=== PATIENT | male | born 1960 | race African-American/Black ===

== ENCOUNTER 2023-05-18 13:37 | Inpatient (IN) | payer OTHER ==
[2023-05-18] MEDS ORDERED: ACETAMINOPHEN 1000 MG/100 ML BAG IVPB ONE (14:29)
[2023-05-18] MEDS ORDERED: ACETAMINOPHEN INJECTION 100 ML IVPB ONE (14:32)
[2023-05-18 15:02] LABS: VENOUS BASE EXCESS -1.6 mmol/L (-2-2); VENOUS PCO2 42.4 mmHg (38-52); VENOUS PH 7.367 (7.310-7.410)
[2023-05-18 15:12] LABS: BASO % 1.3 % (0-2.0); EOS % 2.1 % (0-4.5); HEMATOCRIT 39.7 % (35.4-49); HEMOGLOBIN 13.3 GM/dL (11.7-16.9); MCH 32.4 pg (25.7-33.7); MCHC 33.4 g/dl (32.0-35.9); MEAN CELL VOLUME 96.9 fl (80-96); MONO % 8.1 % (3.8-10.2); NEUT % 63.5 % (42.8-82.8); PLATELET COUNT 222 10^3/uL (134-434); RBC 4.09 M/mm3 (4.00-5.60); RDW 14.9 % (11.9-15.9); WHITE BLOOD COUNT 10.3 K/mm3 (4.0-10.0)
[2023-05-18 15:21] LABS: POTASSIUM 3.3 mmol/L (3.5-5.1)
[2023-05-18 15:24] LABS: CALCIUM 8.6 mg/dL (8.5-10.1)
[2023-05-18 15:25] LABS: ALBUMIN 3.8 g/dl (3.4-5.0); BLOOD UREA NITROGEN 12.6 mg/dL (7-18); MAGNESIUM 1.7 mg/dL (1.8-2.4)
[2023-05-18 15:28] LABS: BILIRUBIN,TOTAL 1.5 mg/dL (0.2-1); CREATININE 1.2 mg/dL (0.55-1.3)
[2023-05-18 15:29] LABS: TOT PROT 7.4 g/dl (6.4-8.2)
[2023-05-18 15:32] LABS: N-TERMINAL BNP 4140.6 pg/ml (5-125)
[2023-05-18] MEDS ORDERED: POTASSIUM CHLORIDE TABS 20 MEQ TABLET.ER (FP) PO ONE ×2 (15:36→15:51)
[2023-05-18] MEDS ORDERED: MAGNESIUM SULF 50% (8.12 MEQ/2 ML-1 GM VIAL) IVPB ONE (15:36)
[2023-05-18] MEDS ORDERED: FUROSEMIDE 40 MG/4 ML INJECTABLE VIAL IVPUSH ONE (15:36)
[2023-05-18] MEDS ORDERED: MAGNESIUM SULFATE IN WATER 2 GM/50 ML IVPB IVPB ONE (15:51)
[2023-05-18] MEDS ORDERED: FUROSEMIDE 40 MG/4 ML INJECTABLE VIAL ONE (15:51)
[2023-05-18] MEDS ORDERED: CEFTRIAXONE 1,000 MG in DEXTROSE 5%-WATER - 50 ML IVPB ONE (16:54)
[2023-05-18] MEDS ORDERED: CEFTRIAXONE 1 GM/50 ML BAG ONE (17:11)
[2023-05-18 21:13] LABS: URINE APPEARANCE CLEAR; URINE BILIRUBIN NEGATIVE (NEGATIVE); URINE COLOR YELLOW; URINE GLUCOSE (UA) 2+ (NEGATIVE); URINE KETONE NEGATIVE (NEGATIVE); URINE LEUK ESTERASE NEGATIVE (NEGATIVE); URINE NITRITE NEGATIVE (NEGATIVE); URINE PROTEIN NEGATIVE (NEGATIVE); URINE UROBILINOGEN 0.2 mg/dL (0.2-1.0)
[2023-05-19] MEDS ORDERED: ALBUTEROL SO4 0.083% IH SOL 2.5 MG/3 ML VIAL.NEB. NEB ONE (03:10)
[2023-05-19] MEDS ORDERED: ACETAMINOPHEN 325 MG TABLET (FP) PO ONE ×2 (04:22→22:20)
[2023-05-19 06:00] LABS: BASO % 1.4 % (0-2.0); EOS % 2.9 % (0-4.5); HEMATOCRIT 39.4 % (35.4-49); HEMOGLOBIN 13.5 GM/dL (11.7-16.9); LYMPH % 20.9 % (8-40); MCH 32.8 pg (25.7-33.7); MCHC 34.2 g/dl (32.0-35.9); MEAN CELL VOLUME 96.1 fl (80-96); MEAN PLT VOLUME 8.5 fl (7.5-11.1); MONO % 9.1 % (3.8-10.2); NEUT % 65.7 % (42.8-82.8); PLATELET COUNT 202 10^3/uL (134-434); RDW 15.3 % (11.9-15.9); WHITE BLOOD COUNT 10.2 K/mm3 (4.0-10.0)
[2023-05-19 06:13] LABS: POTASSIUM 3.5 mmol/L (3.5-5.1)
[2023-05-19 06:15] LABS: CALCIUM 8.3 mg/dL (8.5-10.1)
[2023-05-19 06:16] LABS: ALBUMIN 3.5 g/dl (3.4-5.0); BLOOD UREA NITROGEN 14.6 mg/dL (7-18); MAGNESIUM 1.8 mg/dL (1.8-2.4)
[2023-05-19 06:19] LABS: CREATININE 1.2 mg/dL (0.55-1.3)
[2023-05-19 06:21] LABS: BILIRUBIN,TOTAL 1.1 mg/dL (0.2-1); TOT PROT 6.9 g/dl (6.4-8.2)
[2023-05-19] MEDS ORDERED: LIDOCAINE 5% TOPICAL PATCH TP ONE (06:29)
[2023-05-19] MEDS ORDERED: LIDOCAINE 5% TOPICAL PATCH ONE (06:41)
[2023-05-19] MEDS ORDERED: POTASSIUM CHLORIDE ORAL LIQUID 20 MEQ/15 ML PO ONE (09:30)
[2023-05-19] MEDS ORDERED: CEFTRIAXONE 1 GM/50 ML BAG ONE (09:32)
[2023-05-19] MEDS ORDERED: POTASSIUM CHLORIDE ORAL LIQUID 20 MEQ/15 ML ONE (09:32)
[2023-05-19] MEDS ORDERED: FUROSEMIDE 40 MG/4 ML INJECTABLE VIAL ONE (09:33)
[2023-05-19] MEDS: FUROSEMIDE 40 MG/4 ML INJECTABLE VIAL IVPUSH SCH (10:33)
[2023-05-19] MEDS: CEFTRIAXONE 1 GM in DEXTROSE 5%-WATER - 50 ML IVPB SCH (10:33)
[2023-05-19] MEDS ORDERED: ALBUTEROL SO4 2.5/IPRATROPIUM 0.5 INH SOL 3 ML VIAL.NEB. NEB ONE ×2 (12:15→16:17)
[2023-05-19] MEDS: ALBUTEROL SO4 2.5/IPRATROPIUM 0.5 INH SOL 3 ML VIAL.NEB. NEB SCH ×3 (12:17→20:00)
[2023-05-19 20:11] VITALS: BMI 26.8
[2023-05-19] MEDS: SACUBITRIL/VALSARTAN 24 MG-26 MG TABLET PO SCH (22:27)
[2023-05-19] MEDS: CARVEDILOL 3.125 MG TABLET (FP) PO SCH (22:27)
[2023-05-19] MEDS: LIDOCAINE PATCH REMOVAL MC SCH (22:27)
[2023-05-20] MEDS ORDERED: INSULIN (NOVOLOG) ASPART 100 UNITS/ML 10ML VIAL ONE ×3 (05:39→21:34)
[2023-05-20] MEDS: INSULIN SLIDING SCALE (NOVOLOG) 1 VIAL SQ SCH ×4 (06:02→21:27)
[2023-05-20] MEDS: ALBUTEROL SO4 2.5/IPRATROPIUM 0.5 INH SOL 3 ML VIAL.NEB. NEB SCH ×4 (07:15→20:40)
[2023-05-20 08:00] LABS: POTASSIUM 3.5 mmol/L (3.5-5.1)
[2023-05-20 08:17] LABS: EOS % 5.6 % (0-4.5); HEMATOCRIT 40.2 % (35.4-49); HEMOGLOBIN 13.9 GM/dL (11.7-16.9); LYMPH % 26.4 % (8-40); MCH 32.6 pg (25.7-33.7); MCHC 34.5 g/dl (32.0-35.9); MEAN CELL VOLUME 94.5 fl (80-96); MEAN PLT VOLUME 9.1 fl (7.5-11.1); MONO % 8.9 % (3.8-10.2); NEUT % 58.1 % (42.8-82.8); PLATELET COUNT 209 10^3/uL (134-434); RBC 4.25 M/mm3 (4.00-5.60); RDW 15.2 % (11.9-15.9); WHITE BLOOD COUNT 9.1 K/mm3 (4.0-10.0)
[2023-05-20 08:30] LABS: ALBUMIN 3.6 g/dl (3.4-5.0); CALCIUM 8.8 mg/dL (8.5-10.1)
[2023-05-20 08:31] LABS: BLOOD UREA NITROGEN 17.3 mg/dL (7-18); MAGNESIUM 1.8 mg/dL (1.8-2.4)
[2023-05-20 08:33] LABS: BILIRUBIN,TOTAL 1.2 mg/dL (0.2-1); CREATININE 1.1 mg/dL (0.55-1.3)
[2023-05-20 08:34] LABS: TOT PROT 7.1 g/dl (6.4-8.2)
[2023-05-20] MEDS: POTASSIUM CHLORIDE TABS 20 MEQ TABLET.ER (FP) PO SCH (10:10)
[2023-05-20] MEDS: SACUBITRIL/VALSARTAN 24 MG-26 MG TABLET PO SCH ×2 (10:10→21:27)
[2023-05-20] MEDS: FUROSEMIDE 40 MG/4 ML INJECTABLE VIAL IVPUSH SCH (10:10)
[2023-05-20] MEDS: CARVEDILOL 3.125 MG TABLET (FP) PO SCH ×2 (10:10→21:27)
[2023-05-20] MEDS: CEFTRIAXONE 1 GM in DEXTROSE 5%-WATER - 50 ML IVPB SCH (10:11)
[2023-05-20] MEDS: LIDOCAINE PATCH REMOVAL MC SCH (21:27)
[2023-05-20] MEDS ORDERED: ACETAMINOPHEN 325 MG TABLET (FP) PO ONE (21:59)
[2023-05-21] MEDS: INSULIN SLIDING SCALE (NOVOLOG) 1 VIAL SQ SCH ×2 (06:41→11:53)
[2023-05-21] MEDS: ALBUTEROL SO4 2.5/IPRATROPIUM 0.5 INH SOL 3 ML VIAL.NEB. NEB SCH ×2 (07:15→11:15)
[2023-05-21] MEDS: CARVEDILOL 3.125 MG TABLET (FP) PO SCH (09:30)
[2023-05-21] MEDS: POTASSIUM CHLORIDE TABS 20 MEQ TABLET.ER (FP) PO SCH (09:30)
[2023-05-21] MEDS: SACUBITRIL/VALSARTAN 24 MG-26 MG TABLET PO SCH (09:30)
[2023-05-21] MEDS: FUROSEMIDE 40 MG/4 ML INJECTABLE VIAL IVPUSH SCH (09:30)
[2023-05-21] MEDS: CEFTRIAXONE 1 GM in DEXTROSE 5%-WATER - 50 ML IVPB SCH (09:31)
[2023-05-21] MEDS ORDERED: INSULIN (NOVOLOG) ASPART 100 UNITS/ML 10ML VIAL ONE (11:51)
[2023-05-21 14:48] VITALS: BP 131/77; PULSE 99; RESP 20; TEMP 98
== END 2023-05-21 13:45 | disposition home or self-care (01) | DRG 194 ==
LOC: JER 13:37 → JERBED 15:18 → J4W 05-19 18:11
PROVIDERS: ADMIT Internal Medicine; ATTEND Internal Medicine
DX: I11.0 Hypertensive heart disease with heart failure (principal); J18.9 Pneumonia, unspecified organism; E83.42 Hypomagnesemia; E11.9 Type 2 diabetes mellitus without complications; E78.5 Hyperlipidemia, unspecified; E87.6 Hypokalemia; I10 Essential (primary) hypertension; R09.02 Hypoxemia; I50.23 Acute on chronic systolic (congestive) heart failure
CPT/HCPCS: 0241U-QW; 36415; 71046-TC-FY; 71250-TC; 80053; 81003; 82803; 82962; 83036; 83735; 83880; 84443; 84484; 85025; 87040; 87086; 87899; 93005; 93010; 93306-TC; 94640; 94761; 99291

== ENCOUNTER 2023-05-31 06:46 | Inpatient (IN) | payer OTHER ==
[2023-05-31 09:33] LABS: BASO % 0.9 % (0-2.0); EOS % 2.5 % (0-4.5); HEMATOCRIT 44.4 % (35.4-49); HEMOGLOBIN 14.9 GM/dL (11.7-16.9); LYMPH % 18.8 % (8-40); MCHC 33.5 g/dl (32.0-35.9); MEAN CELL VOLUME 95.2 fl (80-96); MEAN PLT VOLUME 8.2 fl (7.5-11.1); MONO % 5.6 % (3.8-10.2); NEUT % 72.2 % (42.8-82.8); PLATELET COUNT 212 10^3/uL (134-434); RBC 4.66 M/mm3 (4.00-5.60); RDW 14.7 % (11.9-15.9); WHITE BLOOD COUNT 12.5 K/mm3 (4.0-10.0)
[2023-05-31 09:59] LABS: CHLORIDE 101 mmol/L (98-107); SODIUM 139 mmol/L (136-145)
[2023-05-31 10:02] LABS: ANION GAP 10 MMOL/L (8-16); BLOOD UREA NITROGEN 23.7 mg/dL (7-18); CO2 28 mmol/L (21-32); GLUCOSE,RANDOM 186 mg/dL (74-106)
[2023-05-31 10:05] LABS: CREATININE 1.3 mg/dL (0.55-1.3); SGOT/AST 30 U/L (15-37)
[2023-05-31 10:06] LABS: BILIRUBIN,TOTAL 1.7 mg/dL (0.2-1); TOT PROT 8.2 g/dl (6.4-8.2)
[2023-05-31 10:08] LABS: ALK PHOS 43 U/L (45-117)
[2023-05-31] MEDS ORDERED: FAMOTIDINE 20 MG/50 ML IVPB 20 MG/50 ML MG IVPB ONE ×2 (10:09→11:19)
[2023-05-31] MEDS ORDERED: ACETAMINOPHEN 1000 MG/100 ML BAG IVPB ONE ×2 (10:09→22:25)
[2023-05-31] MEDS ORDERED: TRIMETHOBENZAMIDE HCL 200MG/2ML INJ IM ONE ×2 (10:09→11:18)
[2023-05-31 10:10] LABS: N-TERMINAL BNP 864.7 pg/ml (5-125)
[2023-05-31 10:16] LABS: ALBUMIN 4.4 g/dl (3.4-5.0); LIPASE 2434 U/L (73-393); SGPT/ALT 49 U/L (13-61)
[2023-05-31 10:22] LABS: PH,URINE 5.5 (5.0-8.0); URINE APPEARANCE CLEAR; URINE BILIRUBIN NEGATIVE (NEGATIVE); URINE COLOR YELLOW; URINE GLUCOSE (UA) 3+ (NEGATIVE); URINE KETONE TRACE (NEGATIVE); URINE LEUK ESTERASE NEGATIVE (NEGATIVE); URINE NITRITE NEGATIVE (NEGATIVE); URINE PROTEIN TRACE (NEGATIVE); URINE UROBILINOGEN 0.2 mg/dL (0.2-1.0)
[2023-05-31] MEDS ORDERED: ACETAMINOPHEN INJECTION 100 ML IVPB ONE (11:18)
[2023-05-31] MEDS ORDERED: SODIUM CHLORIDE 0.9% 500 ML INFUS.BAG IV ONE (11:19)
[2023-05-31 12:15] LABS: LACTIC ACID 2.3 mmol/L (0.4-2.0)
[2023-05-31 12:54] LABS: MAGNESIUM 2.1 mg/dL (1.8-2.4)
[2023-05-31 15:08] LABS: AMYLASE 509 U/L (25-115)
[2023-05-31 15:09] LABS: CHOLESTEROL 202 mg/dL (50-200)
[2023-05-31 15:10] LABS: BILIRUBIN,DIRECT 0.4 mg/dL (0.0-0.2)
[2023-05-31 15:12] LABS: HDL CHOLESTEROL 63 mg/dL (40-60); LDL CHOLESTEROL (ONLY SJRH) 95 mg/dL (5-100)
[2023-05-31] MEDS ORDERED: ALBUTEROL SO4 2.5/IPRATROPIUM 0.5 INH SOL 3 ML VIAL.NEB. NEB ONE (16:08)
[2023-05-31] MEDS: ALBUTEROL SO4 2.5/IPRATROPIUM 0.5 INH SOL 3 ML VIAL.NEB. NEB SCH ×2 (16:14→23:26)
[2023-05-31] MEDS ORDERED: LACTATED RINGERS SOLUTION 1,000 ML/1,000 ML INFUS.BAG IV SCH ×2 (16:30)
[2023-05-31 17:57] LABS: LACTIC ACID 2.1 mmol/L (0.4-2.0)
[2023-05-31] MEDS: HEPARIN NA (PORCINE) 5,000 UNITS/ML 1ML VIAL SQ SCH (22:49)
[2023-05-31] MEDS: CARVEDILOL 3.125 MG TABLET (FP) PO SCH (22:49)
[2023-06-01] MEDS ORDERED: LACTATED RINGERS SOLUTION 1,000 ML/1,000 ML INFUS.BAG IV SCH (01:46)
[2023-06-01] MEDS: HEPARIN NA (PORCINE) 5,000 UNITS/ML 1ML VIAL SQ SCH ×3 (06:26→21:53)
[2023-06-01] MEDS: morphine SULFATE 4 MG/ML VIAL IVPUSH PRN ×4 (06:42→21:53)
[2023-06-01 07:41] LABS: BASO % 0.5 % (0-2.0); EOS % 0.7 % (0-4.5); HEMOGLOBIN 14.9 GM/dL (11.7-16.9); LYMPH % 9.8 % (8-40); MCH 32.2 pg (25.7-33.7); MCHC 33.8 g/dl (32.0-35.9); MEAN CELL VOLUME 95.1 fl (80-96); MONO % 5.3 % (3.8-10.2); NEUT % 83.7 % (42.8-82.8); PLATELET COUNT 183 10^3/uL (134-434); RBC 4.62 M/mm3 (4.00-5.60); RDW 14.6 % (11.9-15.9)
[2023-06-01 08:00] LABS: POTASSIUM 3.8 mmol/L (3.5-5.1)
[2023-06-01 08:04] LABS: CALCIUM 8.5 mg/dL (8.5-10.1)
[2023-06-01 08:05] LABS: ALBUMIN 4.3 g/dl (3.4-5.0); BLOOD UREA NITROGEN 18.7 mg/dL (7-18); MAGNESIUM 1.8 mg/dL (1.8-2.4)
[2023-06-01 08:08] LABS: CREATININE 0.9 mg/dL (0.55-1.3)
[2023-06-01 08:09] LABS: BILIRUBIN,TOTAL 2.6 mg/dL (0.2-1)
[2023-06-01 08:10] LABS: TOT PROT 7.9 g/dl (6.4-8.2)
[2023-06-01] MEDS ORDERED: FUROSEMIDE 40 MG/4 ML INJECTABLE VIAL IVPUSH ONE (08:30)
[2023-06-01] MEDS: ALBUTEROL SO4 2.5/IPRATROPIUM 0.5 INH SOL 3 ML VIAL.NEB. NEB SCH ×4 (08:50→20:45)
[2023-06-01] MEDS: CARVEDILOL 3.125 MG TABLET (FP) PO SCH ×2 (09:32→21:53)
[2023-06-01] MEDS ORDERED: ACETAMINOPHEN 500 MG TABLET (FP) PO PRN (09:45)
[2023-06-01] MEDS ORDERED: hydrALAZINE HCL 20 MG/ML VIAL IVPUSH PRN (10:43)
[2023-06-01] MEDS ORDERED: METOPROLOL TARTRATE 5 MG/5 ML VIAL IVPUSH PRN (10:43)
[2023-06-01] MEDS: amLODIPine BESYLATE 5 MG TABLET (FP) PO SCH (12:08)
[2023-06-01] MEDS: SACUBITRIL/VALSARTAN 24 MG-26 MG TABLET PO SCH ×2 (12:09→21:53)
[2023-06-02] MEDS: HEPARIN NA (PORCINE) 5,000 UNITS/ML 1ML VIAL SQ SCH ×3 (06:02→21:51)
[2023-06-02] MEDS: morphine SULFATE 4 MG/ML VIAL IVPUSH PRN ×2 (06:02→10:14)
[2023-06-02 08:21] LABS: BASO % 0.1 % (0-2.0); EOS % 0.2 % (0-4.5); HEMATOCRIT 43.2 % (35.4-49); LYMPH % 7.4 % (8-40); MCH 32.4 pg (25.7-33.7); MCHC 34.7 g/dl (32.0-35.9); MEAN CELL VOLUME 93.4 fl (80-96); MEAN PLT VOLUME 9.1 fl (7.5-11.1); MONO % 7.1 % (3.8-10.2); NEUT % 85.2 % (42.8-82.8); PLATELET COUNT 168 10^3/uL (134-434); RBC 4.63 M/mm3 (4.00-5.60); RDW 14.7 % (11.9-15.9)
[2023-06-02 08:28] LABS: POTASSIUM 3.8 mmol/L (3.5-5.1)
[2023-06-02 08:30] LABS: ALBUMIN 3.8 g/dl (3.4-5.0); BLOOD UREA NITROGEN 15.6 mg/dL (7-18); CALCIUM 8.2 mg/dL (8.5-10.1)
[2023-06-02] MEDS: ALBUTEROL SO4 2.5/IPRATROPIUM 0.5 INH SOL 3 ML VIAL.NEB. NEB SCH ×4 (08:34→23:04)
[2023-06-02 08:36] LABS: BILIRUBIN,TOTAL 1.9 mg/dL (0.2-1); TOT PROT 7.3 g/dl (6.4-8.2)
[2023-06-02] MEDS: CARVEDILOL 3.125 MG TABLET (FP) PO SCH (09:31)
[2023-06-02] MEDS: amLODIPine BESYLATE 5 MG TABLET (FP) PO SCH (09:31)
[2023-06-02] MEDS: SACUBITRIL/VALSARTAN 24 MG-26 MG TABLET PO SCH ×2 (09:31→21:51)
[2023-06-02] MEDS: SODIUM CHLORIDE 0.45%/POT 20 MEQ/1,000 ML INFUS.BAG IV SCH (10:13)
[2023-06-02] MEDS: ACETAMINOPHEN 500 MG TABLET (FP) PO PRN (16:03)
[2023-06-02] MEDS ORDERED: INSULIN (NOVOLOG) ASPART 100 UNITS/ML 10ML VIAL ONE (17:28)
[2023-06-02] MEDS: INSULIN SLIDING SCALE (NOVOLOG) 1 VIAL SQ SCH ×2 (17:42→21:58)
[2023-06-02] MEDS: CARVEDILOL 6.25 MG TABLET (FP) PO SCH (21:51)
[2023-06-03] MEDS: HEPARIN NA (PORCINE) 5,000 UNITS/ML 1ML VIAL SQ SCH ×3 (05:56→21:47)
[2023-06-03] MEDS ORDERED: INSULIN (NOVOLOG) ASPART 100 UNITS/ML 10ML VIAL ONE ×2 (06:06→16:38)
[2023-06-03] MEDS: INSULIN SLIDING SCALE (NOVOLOG) 1 VIAL SQ SCH ×4 (06:08→21:48)
[2023-06-03 07:42] LABS: BASO % 0.5 % (0-2.0); EOS % 1.7 % (0-4.5); HEMATOCRIT 38.3 % (35.4-49); HEMOGLOBIN 13.1 GM/dL (11.7-16.9); LYMPH % 12.7 % (8-40); MCH 32.6 pg (25.7-33.7); MCHC 34.1 g/dl (32.0-35.9); MEAN CELL VOLUME 95.4 fl (80-96); MEAN PLT VOLUME 9.2 fl (7.5-11.1); MONO % 6.1 % (3.8-10.2); PLATELET COUNT 135 10^3/uL (134-434); RBC 4.02 M/mm3 (4.00-5.60); RDW 14.6 % (11.9-15.9); WHITE BLOOD COUNT 15.1 K/mm3 (4.0-10.0)
[2023-06-03 07:59] LABS: POTASSIUM 3.5 mmol/L (3.5-5.1)
[2023-06-03 08:03] LABS: ALBUMIN 3.2 g/dl (3.4-5.0); BLOOD UREA NITROGEN 24.5 mg/dL (7-18); CALCIUM 7.2 mg/dL (8.5-10.1)
[2023-06-03 08:06] LABS: CREATININE 1.7 mg/dL (0.55-1.3)
[2023-06-03 08:08] LABS: BILIRUBIN,TOTAL 1.4 mg/dL (0.2-1); TOT PROT 6.6 g/dl (6.4-8.2)
[2023-06-03] MEDS: ALBUTEROL SO4 2.5/IPRATROPIUM 0.5 INH SOL 3 ML VIAL.NEB. NEB SCH ×4 (08:10→19:42)
[2023-06-03] MEDS: SODIUM CHLORIDE 0.45%/POT 20 MEQ/1,000 ML INFUS.BAG IV SCH (09:14)
[2023-06-03] MEDS: ACETAMINOPHEN 500 MG TABLET (FP) PO PRN ×3 (09:16→19:54)
[2023-06-03] MEDS: SACUBITRIL/VALSARTAN 24 MG-26 MG TABLET PO SCH ×2 (09:16→21:47)
[2023-06-03] MEDS: CARVEDILOL 6.25 MG TABLET (FP) PO SCH ×2 (09:16→21:48)
[2023-06-03 16:22] VITALS: BMI 28.6
[2023-06-03 23:47] LABS: PH,URINE 5.5 (5.0-8.0); URINE APPEARANCE CLEAR; URINE BILIRUBIN NEGATIVE (NEGATIVE); URINE COLOR YELLOW; URINE GLUCOSE (UA) 3+ (NEGATIVE); URINE KETONE NEGATIVE (NEGATIVE); URINE LEUK ESTERASE NEGATIVE (NEGATIVE); URINE NITRITE NEGATIVE (NEGATIVE); URINE PROTEIN NEGATIVE (NEGATIVE)
[2023-06-04] MEDS: ACETAMINOPHEN 500 MG TABLET (FP) PO PRN ×2 (01:37→06:51)
[2023-06-04] MEDS: HEPARIN NA (PORCINE) 5,000 UNITS/ML 1ML VIAL SQ SCH (05:59)
[2023-06-04] MEDS: INSULIN SLIDING SCALE (NOVOLOG) 1 VIAL SQ SCH (06:12)
[2023-06-04] MEDS: ALBUTEROL SO4 2.5/IPRATROPIUM 0.5 INH SOL 3 ML VIAL.NEB. NEB SCH (07:30)
[2023-06-04 08:23] LABS: POTASSIUM 3.5 mmol/L (3.5-5.1)
[2023-06-04 08:27] LABS: BASO % 0.5 % (0-2.0); CALCIUM 7.5 mg/dL (8.5-10.1); EOS % 2.5 % (0-4.5); HEMATOCRIT 37.5 % (35.4-49); HEMOGLOBIN 12.8 GM/dL (11.7-16.9); LYMPH % 19.1 % (8-40); MCH 32.4 pg (25.7-33.7); MCHC 34.2 g/dl (32.0-35.9); MEAN CELL VOLUME 94.8 fl (80-96); MEAN PLT VOLUME 8.9 fl (7.5-11.1); MONO % 8.7 % (3.8-10.2); NEUT % 69.2 % (42.8-82.8); PLATELET COUNT 127 10^3/uL (134-434); RBC 3.95 M/mm3 (4.00-5.60); RDW 14.5 % (11.9-15.9); WHITE BLOOD COUNT 9.8 K/mm3 (4.0-10.0)
[2023-06-04 08:30] LABS: CREATININE 1.3 mg/dL (0.55-1.3)
[2023-06-04 08:32] LABS: BILIRUBIN,TOTAL 0.9 mg/dL (0.2-1); TOT PROT 6.3 g/dl (6.4-8.2)
[2023-06-04] MEDS: SODIUM CHLORIDE 0.45%/POT 20 MEQ/1,000 ML INFUS.BAG IV SCH (09:17)
[2023-06-04] MEDS: CARVEDILOL 6.25 MG TABLET (FP) PO SCH (09:18)
[2023-06-04] MEDS: SACUBITRIL/VALSARTAN 24 MG-26 MG TABLET PO SCH (09:18)
[2023-06-04 09:23] VITALS: BP 115/73; PULSE 92; RESP 16; TEMP 98.3
== END 2023-06-04 10:30 | disposition left against medical advice (07) | DRG 282 ==
LOC: JER 06:46 → JERBED 13:42 → J4W 22:17
PROVIDERS: ADMIT Internal Medicine; ATTEND Internal Medicine
DX: K85.20 Alcohol induced acute pancreatitis without necrosis or infection (principal); J44.9 Chronic obstructive pulmonary disease, unspecified; D72.829 Elevated white blood cell count, unspecified; N17.9 Acute kidney failure, unspecified; I11.0 Hypertensive heart disease with heart failure; I50.22 Chronic systolic (congestive) heart failure
CPT/HCPCS: 0241U-QW; 36415; 71045-TC-FY; 74177-TC; 74183-TC; 76705-TC; 76775-TC; 80053; 80061; 81003; 82150; 82248; 82787; 82962; 83036; 83605; 83690; 83735; 83880; 84443; 84484; 85025; 86140; 87040; 93005; 93010; 94010; 94640; 99285-25; J1644; J3480; Q9967

== ENCOUNTER 2023-06-26 21:29 | Inpatient (IN) | payer OTHER ==
[2023-06-26] MEDS ORDERED: VALSARTAN 40 MG TABLET PO ONE (22:29)
[2023-06-26] MEDS ORDERED: ASPIRIN 81 MG CHEWABLE TABLETS PO ONE (22:30)
[2023-06-26] MEDS ORDERED: VALSARTAN 80 MG TABLET ONE (22:41)
[2023-06-26] MEDS ORDERED: ASPIRIN 81 MG CHEWABLE TABLETS ONE (22:41)
[2023-06-26 23:42] LABS: BASO % 0.8 % (0-2.0); EOS % 4.1 % (0-4.5); HEMATOCRIT 33.3 % (35.4-49); HEMOGLOBIN 11.8 GM/dL (11.7-16.9); MCH 32.9 pg (25.7-33.7); MCHC 35.5 g/dl (32.0-35.9); MEAN CELL VOLUME 92.7 fl (80-96); MEAN PLT VOLUME 8.5 fl (7.5-11.1); MONO % 7.1 % (3.8-10.2); PLATELET COUNT 147 10^3/uL (134-434); RBC 3.59 M/mm3 (4.00-5.60); RDW 14.2 % (11.9-15.9); WHITE BLOOD COUNT 8.1 K/mm3 (4.0-10.0)
[2023-06-26 23:50] LABS: INR 1.06 (0.83-1.09); PROTHROMBIN TIME (PATIENT) 12.3 SEC (9.7-13.0)
[2023-06-26 23:53] LABS: ACTIVATED PTT 32.5 SECONDS (25.2-36.5)
[2023-06-27 00:06] LABS: POTASSIUM 3.5 mmol/L (3.5-5.1)
[2023-06-27 00:09] LABS: ALBUMIN 3.9 g/dl (3.4-5.0); BLOOD UREA NITROGEN 17.6 mg/dL (7-18); CALCIUM 8.9 mg/dL (8.5-10.1)
[2023-06-27 00:10] LABS: MAGNESIUM 1.6 mg/dL (1.8-2.4)
[2023-06-27 00:13] LABS: CREATININE 1.1 mg/dL (0.55-1.3)
[2023-06-27 00:14] LABS: BILIRUBIN,TOTAL 0.8 mg/dL (0.2-1); TOT PROT 7.4 g/dl (6.4-8.2)
[2023-06-27] MEDS ORDERED: ACETAMINOPHEN 325 MG TABLET (FP) PO ONE (01:49)
[2023-06-27] MEDS ORDERED: ACETAMINOPHEN 325 MG TABLET (FP) ONE (01:52)
[2023-06-27] MEDS ORDERED: MAGNESIUM SULF 50% (8.12 MEQ/2 ML-1 GM VIAL) IVPB ONE (02:38)
[2023-06-27] MEDS ORDERED: MAGNESIUM SULFATE IN WATER 2 GM/50 ML IVPB IVPB ONE (02:45)
[2023-06-27] MEDS: traMADol HCL 50 MG TABLET PO PRN ×3 (04:32→17:39)
[2023-06-27 06:44] LABS: BASO % 0.7 % (0-2.0); EOS % 3.4 % (0-4.5); HEMATOCRIT 34.8 % (35.4-49); HEMOGLOBIN 11.8 GM/dL (11.7-16.9); LYMPH % 28.3 % (8-40); MEAN CELL VOLUME 94.1 fl (80-96); MEAN PLT VOLUME 8.3 fl (7.5-11.1); MONO % 7.4 % (3.8-10.2); NEUT % 60.2 % (42.8-82.8); PLATELET COUNT 155 10^3/uL (134-434); RBC 3.69 M/mm3 (4.00-5.60); RDW 14.2 % (11.9-15.9); WHITE BLOOD COUNT 8.4 K/mm3 (4.0-10.0)
[2023-06-27 07:05] LABS: CALCIUM 8.7 mg/dL (8.5-10.1)
[2023-06-27 07:06] LABS: ALBUMIN 3.7 g/dl (3.4-5.0); BLOOD UREA NITROGEN 17.4 mg/dL (7-18)
[2023-06-27 07:09] LABS: CREATININE 1.2 mg/dL (0.55-1.3)
[2023-06-27 07:10] LABS: TOT PROT 7.1 g/dl (6.4-8.2)
[2023-06-27] MEDS ORDERED: TAMSULOSIN HCL 0.4 MG CAP ONE (07:55)
[2023-06-27] MEDS: TAMSULOSIN HCL 0.4 MG CAP PO SCH (07:55)
[2023-06-27] MEDS ORDERED: CARVEDILOL 3.125 MG TABLET (FP) ONE (08:29)
[2023-06-27] MEDS ORDERED: SACUBITRIL/VALSARTAN 24 MG-26 MG TABLET ONE (08:29)
[2023-06-27] MEDS ORDERED: FUROSEMIDE 20 MG TABLET (FP) ONE (08:30)
[2023-06-27] MEDS: SACUBITRIL/VALSARTAN 24 MG-26 MG TABLET PO SCH ×2 (09:18→22:22)
[2023-06-27] MEDS ORDERED: FUROSEMIDE 20 MG TABLET (FP) PO SCH ×2 (10:00→12:27)
[2023-06-27] MEDS ORDERED: CARVEDILOL 3.125 MG TABLET (FP) PO SCH (10:00)
[2023-06-27] MEDS ORDERED: traMADol HCL 50 MG TABLET ONE (10:51)
[2023-06-27] MEDS ORDERED: LIDOCAINE 5% TOPICAL PATCH TP ONE (21:35)
[2023-06-27] MEDS ORDERED: ACETAMINOPHEN 1000 MG/100 ML BAG IVPB ONE (21:35)
[2023-06-27] MEDS ORDERED: LIDOCAINE 4% PATCH TP ONE (22:00)
[2023-06-27] MEDS ORDERED: ATORVASTATIN CA 80 MG TABLET (FP) PO SCH (22:00)
[2023-06-27] MEDS: CARVEDILOL 3.125 MG TABLET (FP) PO SCH (22:22)
[2023-06-27] MEDS: INSULIN SLIDING SCALE (NOVOLOG) 1 VIAL SQ SCH (23:29)
[2023-06-28 00:53] VITALS: RESP 18; BMI 30.4
[2023-06-28 02:11] VITALS: PULSE 86
[2023-06-28] MEDS: INSULIN SLIDING SCALE (NOVOLOG) 1 VIAL SQ SCH ×2 (06:15→11:15)
[2023-06-28 07:47] LABS: POTASSIUM 3.9 mmol/L (3.5-5.1)
[2023-06-28 07:53] LABS: CALCIUM 8.4 mg/dL (8.5-10.1); MAGNESIUM 1.8 mg/dL (1.8-2.4)
[2023-06-28 07:54] LABS: BLOOD UREA NITROGEN 17.1 mg/dL (7-18)
[2023-06-28] MEDS: traMADol HCL 50 MG TABLET PO PRN (09:21)
[2023-06-28] MEDS: CARVEDILOL 3.125 MG TABLET (FP) PO SCH (09:21)
[2023-06-28] MEDS: SACUBITRIL/VALSARTAN 24 MG-26 MG TABLET PO SCH (09:21)
[2023-06-28] MEDS: TAMSULOSIN HCL 0.4 MG CAP PO SCH (09:22)
[2023-06-28] MEDS ORDERED: FLU VACCINE (FLULAVAL) PF 60 MCG/0.5 ML SYRINGE 2023-2024 IM ONE (10:00)
[2023-06-28] MEDS ORDERED: PNEUMOC 20-VAL CONJ-DIP CRM/PF 0.5 ML SYRINGE IM ONE (10:00)
[2023-06-28] MEDS ORDERED: LIDOCAINE PATCH REMOVAL MC SCH (10:00)
[2023-06-28 13:02] VITALS: BP 125/79; TEMP 98.6
== END 2023-06-28 13:02 | disposition home or self-care (01) | DRG 194 ==
LOC: JER 21:29 → JERBED 06-27 00:59 → J4W 06-27 13:26
PROVIDERS: ADMIT Internal Medicine; ATTEND Family Medicine
DX: I11.0 Hypertensive heart disease with heart failure (principal); I50.23 Acute on chronic systolic (congestive) heart failure; R07.89 Other chest pain; E11.9 Type 2 diabetes mellitus without complications; E78.5 Hyperlipidemia, unspecified; M25.552 Pain in left hip; J44.9 Chronic obstructive pulmonary disease, unspecified; M54.17 Radiculopathy, lumbosacral region; Z86.73 Personal history of transient ischemic attack (TIA), and cerebral infarction without residual deficits
CPT/HCPCS: 36415; 71045-TC-FY; 72100-TC-FY; 73502-TC-LT-FY; 80048; 80053; 82962; 83735; 83880; 84484; 85025; 85610; 85730; 90677; 90686; 93005; 93010; 97116-GP; 97161-GP; 99285-25; G0008

== ENCOUNTER 2023-10-02 01:01 | Inpatient (IN) | payer OTHER ==
[2023-10-02] MEDS ORDERED: MAGNESIUM SULF 50% (8.12 MEQ/2 ML-1 GM VIAL) IVPB ONE (01:29)
[2023-10-02] MEDS ORDERED: POTASSIUM CHLORIDE ORAL LIQUID 20 MEQ/15 ML PO ONE (01:30)
[2023-10-02] MEDS ORDERED: SODIUM CHLORIDE 0.9% 500 ML INFUS.BAG IV ONE (01:43)
[2023-10-02] MEDS ORDERED: ACETAMINOPHEN 1000 MG/100 ML BAG IVPB ONE (01:43)
[2023-10-02] MEDS ORDERED: FAMOTIDINE 20 MG/50 ML IVPB 20 MG/50 ML MG IVPB ONE ×2 (01:43→02:08)
[2023-10-02] MEDS ORDERED: ACETAMINOPHEN INJECTION 100 ML IVPB ONE ×2 (02:08→11:30)
[2023-10-02 02:37] LABS: BASO % 0.5 % (0-2.0); EOS % 4.3 % (0-4.5); HEMATOCRIT 39.8 % (35.4-49); HEMOGLOBIN 13.5 GM/dL (11.7-16.9); LYMPH % 16.3 % (8-40); MCH 33.6 pg (25.7-33.7); MCHC 33.9 g/dl (32.0-35.9); MEAN CELL VOLUME 99.1 fl (80-96); MEAN PLT VOLUME 7.4 fl (7.5-11.1); NEUT % 68.9 % (42.8-82.8); PLATELET COUNT 191 10^3/uL (134-434); RBC 4.02 M/mm3 (4.00-5.60); RDW 15.7 % (11.9-15.9); WHITE BLOOD COUNT 10.9 K/mm3 (4.0-10.0)
[2023-10-02 02:57] LABS: POTASSIUM 3.6 mmol/L (3.5-5.1)
[2023-10-02 02:59] LABS: CALCIUM 8.3 mg/dL (8.5-10.1)
[2023-10-02 03:00] LABS: ALBUMIN 4.1 g/dl (3.4-5.0); BLOOD UREA NITROGEN 20.7 mg/dL (7-18)
[2023-10-02 03:03] LABS: CREATININE 1.4 mg/dL (0.55-1.3)
[2023-10-02 03:04] LABS: BILIRUBIN,TOTAL 1.6 mg/dL (0.2-1); TOT PROT 8.1 g/dl (6.4-8.2)
[2023-10-02 03:06] LABS: N-TERMINAL BNP 2413.9 pg/ml (5-125)
[2023-10-02] MEDS ORDERED: LACTATED RINGERS SOLUTION 1000 ML INFUS.BAG IV ONE (03:38)
[2023-10-02] MEDS ORDERED: MAGNESIUM SULFATE IN WATER 2 GM/50 ML IVPB IVPB ONE (03:41)
[2023-10-02] MEDS ORDERED: POTASSIUM CHLORIDE ORAL LIQUID 20 MEQ/15 ML ONE (03:41)
[2023-10-02] MEDS ORDERED: IBUPROFEN 600 MG TABLET (FP) PO ONE ×2 (03:52)
[2023-10-02] MEDS ORDERED: ONDANSETRON 4 MG/2 ML VIAL IVPUSH ONE (04:18)
[2023-10-02] MEDS ORDERED: ONDANSETRON 4 MG/2 ML VIAL ONE (04:22)
[2023-10-02] MEDS: LACTATED RINGERS SOLUTION 1,000 ML/1,000 ML INFUS.BAG IV SCH (06:21)
[2023-10-02] MEDS: morphine SULFATE 4 MG/ML VIAL IVPUSH PRN ×2 (06:47→20:09)
[2023-10-02] MEDS ORDERED: PANTOPRAZOLE SODIUM 40 MG VIAL ONE (10:29)
[2023-10-02] MEDS: POTASSIUM CHLORIDE TABS 20 MEQ TABLET.ER (FP) PO SCH (10:43)
[2023-10-02] MEDS: TAMSULOSIN HCL 0.4 MG CAP PO SCH (10:43)
[2023-10-02] MEDS: HEPARIN NA (PORCINE) 5,000 UNITS/ML 1ML VIAL SQ SCH ×2 (10:43→21:06)
[2023-10-02] MEDS: SACUBITRIL/VALSARTAN 24 MG-26 MG TABLET PO SCH ×2 (10:43→21:06)
[2023-10-02] MEDS: CARVEDILOL 6.25 MG TABLET (FP) PO SCH ×2 (10:43→21:06)
[2023-10-02] MEDS: PANTOPRAZOLE SODIUM 40 MG VIAL IVPUSH SCH (10:44)
[2023-10-02] MEDS: FUROSEMIDE 40 MG TABLET (FP) PO SCH (10:44)
[2023-10-02] MEDS: ACETAMINOPHEN 1000 MG/100 ML BAG IVPB PRN (11:34)
[2023-10-02] MEDS ORDERED: CARVEDILOL 6.25 MG TABLET (FP) PO ONE (19:14)
[2023-10-02] MEDS ORDERED: SACUBITRIL/VALSARTAN 24 MG-26 MG TABLET ONE (20:02)
[2023-10-02] MEDS ORDERED: morphine SULFATE 4 MG/ML VIAL ONE (20:02)
[2023-10-02] MEDS ORDERED: CARVEDILOL 6.25 MG TABLET (FP) ONE (20:03)
[2023-10-02] MEDS ORDERED: HEPARIN NA (PORCINE) 5,000 UNITS/ML 1ML VIAL ONE (20:03)
[2023-10-02] MEDS ORDERED: ATORVASTATIN CA 80 MG TABLET (FP) ONE (20:03)
[2023-10-02] MEDS: ATORVASTATIN CA 80 MG TABLET (FP) PO SCH (21:06)
[2023-10-03] MEDS: ACETAMINOPHEN 1000 MG/100 ML BAG IVPB PRN ×2 (01:11→08:15)
[2023-10-03] MEDS ORDERED: ACETAMINOPHEN INJECTION 100 ML IVPB ONE ×2 (01:13→08:08)
[2023-10-03] MEDS: LACTATED RINGERS SOLUTION 1,000 ML/1,000 ML INFUS.BAG IV SCH (04:00)
[2023-10-03] MEDS: TAMSULOSIN HCL 0.4 MG CAP PO SCH (08:15)
[2023-10-03] MEDS: CARVEDILOL 6.25 MG TABLET (FP) PO SCH ×2 (09:11→21:56)
[2023-10-03] MEDS: PANTOPRAZOLE SODIUM 40 MG VIAL IVPUSH SCH (09:11)
[2023-10-03] MEDS: SACUBITRIL/VALSARTAN 24 MG-26 MG TABLET PO SCH ×2 (09:11→21:56)
[2023-10-03] MEDS: POTASSIUM CHLORIDE TABS 20 MEQ TABLET.ER (FP) PO SCH (09:11)
[2023-10-03] MEDS: HEPARIN NA (PORCINE) 5,000 UNITS/ML 1ML VIAL SQ SCH ×2 (09:11→21:56)
[2023-10-03] MEDS: FUROSEMIDE 40 MG TABLET (FP) PO SCH (09:11)
[2023-10-03 11:32] LABS: BASO % 0.4 % (0-2.0); HEMATOCRIT 42.9 % (35.4-49); HEMOGLOBIN 14.5 GM/dL (11.7-16.9); LYMPH % 9.3 % (8-40); MCH 33.6 pg (25.7-33.7); MCHC 33.8 g/dl (32.0-35.9); MEAN CELL VOLUME 99.2 fl (80-96); MEAN PLT VOLUME 7.8 fl (7.5-11.1); MONO % 5.8 % (3.8-10.2); NEUT % 82.5 % (42.8-82.8); PLATELET COUNT 193 10^3/uL (134-434); RBC 4.32 M/mm3 (4.00-5.60); RDW 15.6 % (11.9-15.9); WHITE BLOOD COUNT 14.4 K/mm3 (4.0-10.0)
[2023-10-03 11:59] LABS: POTASSIUM 4.4 mmol/L (3.5-5.1)
[2023-10-03 12:04] LABS: BLOOD UREA NITROGEN 15.1 mg/dL (7-18); CALCIUM 8.2 mg/dL (8.5-10.1)
[2023-10-03 12:07] LABS: CREATININE 1.2 mg/dL (0.55-1.3)
[2023-10-03 12:08] LABS: BILIRUBIN,TOTAL 2.5 mg/dL (0.2-1)
[2023-10-03] MEDS ORDERED: ACETAMINOPHEN 325 MG TABLET (FP) PO PRN (16:17)
[2023-10-03] MEDS: ACETAMINOPHEN 325 MG TABLET (FP) PO PRN ×2 (16:23→21:56)
[2023-10-03 16:33] VITALS: RESP 18; BMI 29.3
[2023-10-03 16:46] LABS: BASO % 0.2 % (0-2.0); EOS % 2.2 % (0-4.5); HEMATOCRIT 42.8 % (35.4-49); HEMOGLOBIN 14.5 GM/dL (11.7-16.9); LYMPH % 9.3 % (8-40); MCH 33.7 pg (25.7-33.7); MCHC 33.8 g/dl (32.0-35.9); MEAN CELL VOLUME 99.6 fl (80-96); MEAN PLT VOLUME 8.5 fl (7.5-11.1); MONO % 6.4 % (3.8-10.2); NEUT % 81.9 % (42.8-82.8); PLATELET COUNT 195 10^3/uL (134-434); RDW 15.7 % (11.9-15.9); WHITE BLOOD COUNT 13.9 K/mm3 (4.0-10.0)
[2023-10-03] MEDS: ATORVASTATIN CA 80 MG TABLET (FP) PO SCH (21:56)
[2023-10-04] MEDS: ACETAMINOPHEN 325 MG TABLET (FP) PO PRN (06:17)
[2023-10-04] MEDS: LACTATED RINGERS SOLUTION 1,000 ML/1,000 ML INFUS.BAG IV SCH (06:23)
[2023-10-04 07:20] VITALS: TEMP 98.4
[2023-10-04] MEDS: TAMSULOSIN HCL 0.4 MG CAP PO SCH (08:32)
[2023-10-04] MEDS: POTASSIUM CHLORIDE TABS 20 MEQ TABLET.ER (FP) PO SCH (09:32)
[2023-10-04] MEDS: PANTOPRAZOLE SODIUM 40 MG VIAL IVPUSH SCH (09:32)
[2023-10-04] MEDS: FUROSEMIDE 40 MG TABLET (FP) PO SCH (09:32)
[2023-10-04] MEDS: SACUBITRIL/VALSARTAN 24 MG-26 MG TABLET PO SCH (09:32)
[2023-10-04] MEDS: CARVEDILOL 6.25 MG TABLET (FP) PO SCH (09:32)
[2023-10-04] MEDS: HEPARIN NA (PORCINE) 5,000 UNITS/ML 1ML VIAL SQ SCH ×2 (09:33→09:40)
[2023-10-04 10:15] LABS: POTASSIUM 3.7 mmol/L (3.5-5.1)
[2023-10-04 10:17] LABS: CALCIUM 8.8 mg/dL (8.5-10.1)
[2023-10-04 10:18] LABS: ALBUMIN 3.6 g/dl (3.4-5.0); BLOOD UREA NITROGEN 12.4 mg/dL (7-18)
[2023-10-04 10:24] LABS: BILIRUBIN,TOTAL 1.6 mg/dL (0.2-1); TOT PROT 7.2 g/dl (6.4-8.2)
[2023-10-04 11:58] VITALS: BP 131/95; PULSE 90
== END 2023-10-04 13:27 | disposition home or self-care (01) | DRG 282 ==
LOC: JER 01:01 → JERBED 03:28 → J5S 10-03 14:52
PROVIDERS: ADMIT Internal Medicine; ATTEND Family Medicine
DX: K85.20 Alcohol induced acute pancreatitis without necrosis or infection (principal); I11.0 Hypertensive heart disease with heart failure; I50.22 Chronic systolic (congestive) heart failure; K70.10 Alcoholic hepatitis without ascites; E11.9 Type 2 diabetes mellitus without complications; E78.5 Hyperlipidemia, unspecified; I34.0 Nonrheumatic mitral (valve) insufficiency
CPT/HCPCS: 0241U-QW; 36415; 71045-TC-FY; 74176-TC; 80053; 82105; 82728; 82962; 83516; 83540; 83550; 83690; 83880; 84484; 85025; 86038; 86140; 86301; 86705; 86803; 87340; 87517; 93005; 93010; 99285-25; J1644

== ENCOUNTER 2023-12-07 04:34 | Inpatient (IN) | payer MEDICARE, OTHER ==
[2023-12-07] MEDS ORDERED: ACETAMINOPHEN INJECTION 100 ML IVPB ONE (05:47)
[2023-12-07] MEDS ORDERED: FAMOTIDINE 20 MG/50 ML IVPB 20 MG/50 ML MG IVPB ONE (05:47)
[2023-12-07] MEDS: FAMOTIDINE 20 MG/50 ML IVPB 20 MG/50 ML MG IVPB ONE (05:59)
[2023-12-07] MEDS: ACETAMINOPHEN 1000 MG/100 ML BAG IVPB ONE (05:59)
[2023-12-07 06:04] LABS: BASO % 0.6 % (0-2.0); EOS % 0.5 % (0-4.5); HEMATOCRIT 40.4 % (35.4-49); HEMOGLOBIN 13.8 GM/dL (11.7-16.9); LYMPH % 11.2 % (8-40); MCH 33.4 pg (25.7-33.7); MCHC 34.2 g/dl (32.0-35.9); MEAN CELL VOLUME 97.9 fl (80-96); MEAN PLT VOLUME 7.7 fl (7.5-11.1); NEUT % 81.7 % (42.8-82.8); PLATELET COUNT 202 10^3/uL (134-434); RBC 4.13 M/mm3 (4.00-5.60); RDW 15.6 % (11.9-15.9); WHITE BLOOD COUNT 11.4 K/mm3 (4.0-10.0)
[2023-12-07 06:11] LABS: INR 1.11 (0.83-1.09); PROTHROMBIN TIME (PATIENT) 12.9 SEC (9.7-13.0)
[2023-12-07] MEDS ORDERED: TRIMETHOBENZAMIDE HCL 200MG/2ML INJ IM ONE (06:34)
[2023-12-07 06:45] LABS: POTASSIUM 3.6 mmol/L (3.5-5.1)
[2023-12-07 06:47] LABS: CALCIUM 9.1 mg/dL (8.5-10.1)
[2023-12-07 06:48] LABS: ALBUMIN 4.5 g/dl (3.4-5.0); BLOOD UREA NITROGEN 19.7 mg/dL (7-18); MAGNESIUM 1.8 mg/dL (1.8-2.4)
[2023-12-07 06:50] LABS: CREATININE 1.5 mg/dL (0.55-1.3)
[2023-12-07 06:52] LABS: BILIRUBIN,TOTAL 1.7 mg/dL (0.2-1); TOT PROT 8.1 g/dl (6.4-8.2)
[2023-12-07 06:56] LABS: N-TERMINAL BNP 1037.6 pg/ml (5-125)
[2023-12-07] MEDS: TRIMETHOBENZAMIDE HCL 200MG/2ML INJ IM ONE (07:00)
[2023-12-07] MEDS ORDERED: MAGNESIUM 1GM/D5W - 1 GM/100 ML IVPB IVPB ONE (07:02)
[2023-12-07] MEDS: MAGNESIUM SULF 50% (8.12 MEQ/2 ML-1 GM VIAL) IVPB ONE (07:05)
[2023-12-07] MEDS: LACTATED RINGERS SOLUTION 1,000 ML/1,000 ML INFUS.BAG IV STA (07:45)
[2023-12-07] MEDS ORDERED: morphine SULFATE 4 MG/ML VIAL ONE ×2 (10:56→15:23)
[2023-12-07] MEDS: morphine CARPU-JECT 4 MG/1 ML DISP.SYRIN IVPUSH ONE (11:07)
[2023-12-07] MEDS: POTASSIUM CHLORIDE 10 MEQ in SODIUM CHLORIDE 0.45% 1,000 ML IVPB SCH ×2 (11:40→14:07)
[2023-12-07] MEDS: DEXTROSE 5%-LACTATED RINGERS 1,000 ML IV SCH (11:40)
[2023-12-07] MEDS: morphine SULFATE 4 MG/ML VIAL IVPUSH PRN (15:20)
[2023-12-07 15:37] LABS: EPI CELLS 5 /uL (0-25.1); HYALINE CASTS 1 /uL (0-3.1); PH,URINE 5.5 (5.0-8.0); URINE APPEARANCE CLEAR; URINE BACTERIA 6 /uL (0-1359); URINE BILIRUBIN NEGATIVE (NEGATIVE); URINE COLOR YELLOW; URINE GLUCOSE (UA) 3+ (NEGATIVE); URINE KETONE 1+ (NEGATIVE); URINE LEUK ESTERASE NEGATIVE (NEGATIVE); URINE NITRITE NEGATIVE (NEGATIVE); URINE PROTEIN 2+ (NEGATIVE); URINE RBC 6 /uL (0-23.9); URINE UROBILINOGEN 0.2 mg/dL (0.2-1.0); URINE WBC 4 /uL (0-25.8)
[2023-12-07 16:13] VITALS: BMI 27.3
[2023-12-07] MEDS: ACETAMINOPHEN 1000 MG/100 ML BAG IVPB PRN (16:30)
[2023-12-07] MEDS: LISINOPRIL 20 MG TABLET PO ONE (17:15)
[2023-12-07] MEDS: ATORVASTATIN CA 80 MG TABLET (FP) PO SCH (22:30)
[2023-12-07] MEDS: INSULIN ASPART SLIDING SCALE (NOVOLOG) 1 VIAL SQ SCH (22:30)
[2023-12-07] MEDS: SACUBITRIL/VALSARTAN 24 MG-26 MG TABLET PO SCH (22:30)
[2023-12-07] MEDS: CARVEDILOL 6.25 MG TABLET (FP) PO SCH (22:30)
[2023-12-08 10:01] LABS: BASO % 0.6 % (0-2.0); HEMATOCRIT 42.8 % (35.4-49); HEMOGLOBIN 14.7 GM/dL (11.7-16.9); LYMPH % 12.2 % (8-40); MCH 33.5 pg (25.7-33.7); MCHC 34.3 g/dl (32.0-35.9); MEAN CELL VOLUME 97.7 fl (80-96); MEAN PLT VOLUME 8.2 fl (7.5-11.1); MONO % 7.6 % (3.8-10.2); NEUT % 76.6 % (42.8-82.8); PLATELET COUNT 206 10^3/uL (134-434); RBC 4.38 M/mm3 (4.00-5.60); RDW 15.7 % (11.9-15.9); WHITE BLOOD COUNT 13.4 K/mm3 (4.0-10.0)
[2023-12-08 10:35] LABS: POTASSIUM 3.9 mmol/L (3.5-5.1)
[2023-12-08 10:39] LABS: CALCIUM 8.8 mg/dL (8.5-10.1)
[2023-12-08 10:40] LABS: ALBUMIN 4.2 g/dl (3.4-5.0); BLOOD UREA NITROGEN 16.7 mg/dL (7-18)
[2023-12-08 10:42] LABS: BILIRUBIN,TOTAL 2.2 mg/dL (0.2-1); TOT PROT 8.1 g/dl (6.4-8.2)
[2023-12-08 10:44] LABS: CHOLESTEROL 225 mg/dL (50-200); HDL CHOLESTEROL 69 mg/dL (40-60)
[2023-12-08 10:46] LABS: LDL CHOLESTEROL (ONLY SJRH) 127 mg/dL (5-100)
[2023-12-08] MEDS ORDERED: INSULIN (NOVOLOG) ASPART 100 UNITS/ML 10ML VIAL ONE ×3 (12:40→21:18)
[2023-12-08 14:07] LABS: BILIRUBIN,DIRECT 0.5 mg/dL (0.0-0.2)
[2023-12-08] MEDS: KETOROLAC TROMETHAMINE 15 MG/ML VIAL IVPUSH ONE (22:23)
[2023-12-08 23:30] VITALS: TEMP 98.6
[2023-12-09 08:20] LABS: INR 1.09 (0.83-1.09); PROTHROMBIN TIME (PATIENT) 12.6 SEC (9.7-13.0)
[2023-12-09 08:23] LABS: BASO % 0.7 % (0-2.0); EOS % 4.4 % (0-4.5); HEMATOCRIT 39.4 % (35.4-49); HEMOGLOBIN 13.7 GM/dL (11.7-16.9); MCH 33.6 pg (25.7-33.7); MCHC 34.7 g/dl (32.0-35.9); MEAN CELL VOLUME 96.6 fl (80-96); MEAN PLT VOLUME 8.3 fl (7.5-11.1); MONO % 9.1 % (3.8-10.2); NEUT % 65.8 % (42.8-82.8); PLATELET COUNT 199 10^3/uL (134-434); RBC 4.08 M/mm3 (4.00-5.60); RDW 15.6 % (11.9-15.9); WHITE BLOOD COUNT 9.9 K/mm3 (4.0-10.0)
[2023-12-09 08:30] LABS: POTASSIUM 3.4 mmol/L (3.5-5.1)
[2023-12-09 08:37] LABS: BLOOD UREA NITROGEN 16.3 mg/dL (7-18); CALCIUM 8.5 mg/dL (8.5-10.1); CREATININE 1.2 mg/dL (0.55-1.3)
[2023-12-09 08:38] LABS: ALBUMIN 3.9 g/dl (3.4-5.0)
[2023-12-09 08:39] LABS: BILIRUBIN,TOTAL 1.8 mg/dL (0.2-1); TOT PROT 7.6 g/dl (6.4-8.2)
[2023-12-09 10:12] VITALS: BP 141/86; PULSE 82; RESP 19
[2023-12-09] MEDS: ACETAMINOPHEN 325 MG TABLET (FP) PO PRN (10:53)
[2023-12-09] MEDS: POTASSIUM CHLORIDE TABS 20 MEQ TABLET.ER (FP) PO ONE (10:53)
[2023-12-09] MEDS ORDERED: INSULIN (NOVOLOG) ASPART 100 UNITS/ML 10ML VIAL ONE (11:37)
== END 2023-12-09 12:14 | disposition home or self-care (01) | DRG 439 ==
LOC: JER 04:34 → JERBED 11:03 → J8W 15:32
PROVIDERS: ADMIT Internal Medicine; ATTEND Internal Medicine
DX: K85.20 Alcohol induced acute pancreatitis without necrosis or infection (principal); I50.32 Chronic diastolic (congestive) heart failure; N17.9 Acute kidney failure, unspecified; I25.10 Atherosclerotic heart disease of native coronary artery without angina pectoris; J44.9 Chronic obstructive pulmonary disease, unspecified; N40.0 Benign prostatic hyperplasia without lower urinary tract symptoms; M51.36 Other intervertebral disc degeneration, lumbar region; E78.5 Hyperlipidemia, unspecified; I11.0 Hypertensive heart disease with heart failure; K70.10 Alcoholic hepatitis without ascites
CPT/HCPCS: 0241U-QW; 36415; 71045-TC-FY; 74176-TC; 76700-TC; 80053; 80061; 81003; 82248; 82962; 83036; 83690; 83735; 83880; 84443; 84478; 84484; 85025; 85610; 85730; 86140; 93005; 93010; 97116-GP; 97161-GP; 99285-25; J0131

== ENCOUNTER 2024-02-12 06:26 | Inpatient (IN) | payer OTHER ==
[2024-02-12 06:32] VITALS: BMI 29.0
[2024-02-12] MEDS ORDERED: ACETAMINOPHEN 325 MG TABLET (FP) ONE ×2 (07:49→13:28)
[2024-02-12] MEDS ORDERED: LIDOCAINE 5% TOPICAL PATCH ONE (07:49)
[2024-02-12] MEDS ORDERED: METHOCARBAMOL 500 MG TABLET ONE (07:49)
[2024-02-12] MEDS: METHOCARBAMOL 500 MG TABLET PO ONE (08:04)
[2024-02-12] MEDS: ACETAMINOPHEN 325 MG TABLET (FP) PO ONE ×2 (08:04→14:05)
[2024-02-12] MEDS: LIDOCAINE 5% TOPICAL PATCH TP ONE (08:04)
[2024-02-12 08:33] LABS: POTASSIUM 4.1 mmol/L (3.5-5.1)
[2024-02-12 08:35] LABS: CALCIUM 9.7 mg/dL (8.5-10.1)
[2024-02-12 08:36] LABS: ALBUMIN 4.3 g/dl (3.4-5.0); BLOOD UREA NITROGEN 17.5 mg/dL (7-18)
[2024-02-12 08:41] LABS: BASO % 0.8 % (0-2.0); BILIRUBIN,TOTAL 1.2 mg/dL (0.2-1); EOS % 2.8 % (0-4.5); HEMATOCRIT 37.5 % (35.4-49); HEMOGLOBIN 13.4 GM/dL (11.7-16.9); LYMPH % 22.7 % (8-40); MCH 33.3 pg (25.7-33.7); MCHC 35.8 g/dl (32.0-35.9); MEAN PLT VOLUME 8.7 fl (7.5-11.1); MONO % 8.7 % (3.8-10.2); PLATELET COUNT 229 10^3/uL (134-434); RBC 4.03 M/mm3 (4.00-5.60); RDW 14.8 % (11.9-15.9); TOT PROT 8.2 g/dl (6.4-8.2)
[2024-02-12] MEDS ORDERED: KETOROLAC TROMETHAMINE 15 MG/ML VIAL ONE (08:50)
[2024-02-12] MEDS: KETOROLAC TROMETHAMINE 15 MG/ML VIAL IVPUSH ONE ×2 (09:05→17:56)
[2024-02-12] MEDS: INSULIN ASPART SLIDING SCALE (NOVOLOG) 1 VIAL SQ SCH (17:42)
[2024-02-12] MEDS: CARVEDILOL 6.25 MG TABLET (FP) PO ONE (17:47)
[2024-02-12] MEDS: KETOROLAC TROMETHAMINE 30 MG/1 ML VIAL IVPUSH PRN (17:48)
[2024-02-12] MEDS: CARVEDILOL 6.25 MG TABLET (FP) PO SCH (21:22)
[2024-02-12] MEDS: ATORVASTATIN CA 80 MG TABLET (FP) PO SCH (21:22)
[2024-02-12] MEDS: LIDOCAINE PATCH REMOVAL MC ONE (21:22)
[2024-02-12] MEDS: SACUBITRIL/VALSARTAN 24 MG-26 MG TABLET PO SCH (21:22)
[2024-02-13] MEDS: EMPAGLIFLOZIN (JARDIANCE) 25 MG TABLET PO SCH (06:12)
[2024-02-13] MEDS: TAMSULOSIN HCL 0.4 MG CAP PO SCH (08:43)
[2024-02-13 09:16] LABS: BASO % 0.4 % (0-2.0); EOS % 3.4 % (0-4.5); HEMATOCRIT 37.5 % (35.4-49); HEMOGLOBIN 13.9 GM/dL (11.7-16.9); MCH 34.4 pg (25.7-33.7); MCHC 36.9 g/dl (32.0-35.9); MEAN PLT VOLUME 8.4 fl (7.5-11.1); MONO % 6.3 % (3.8-10.2); NEUT % 62.9 % (42.8-82.8); PLATELET COUNT 214 10^3/uL (134-434); RBC 4.03 M/mm3 (4.00-5.60); RDW 15.1 % (11.9-15.9); WHITE BLOOD COUNT 9.7 K/mm3 (4.0-10.0)
[2024-02-13 09:42] LABS: POTASSIUM 3.5 mmol/L (3.5-5.1)
[2024-02-13 09:52] LABS: ALBUMIN 4.2 g/dl (3.4-5.0); BLOOD UREA NITROGEN 24.2 mg/dL (7-18); CALCIUM 9.6 mg/dL (8.5-10.1)
[2024-02-13 09:55] LABS: CREATININE 1.2 mg/dL (0.55-1.3)
[2024-02-13] MEDS: FUROSEMIDE 40 MG TABLET (FP) PO SCH (09:56)
[2024-02-13] MEDS: PANTOPRAZOLE 40 MG TABLET PO SCH (09:56)
[2024-02-13 09:57] LABS: BILIRUBIN,TOTAL 1.2 mg/dL (0.2-1); TOT PROT 7.7 g/dl (6.4-8.2)
[2024-02-13] MEDS: ENOXAPARIN NA (PORCINE) 40 MG/0.4 ML DISP.SYRIN SQ SCH (09:58)
[2024-02-13] MEDS ORDERED: PATIENT'S OWN MEDICATION (NON-FORMULARY) (Empagliflozin 25 MG Tablet) PO SCH (10:00)
[2024-02-13] MEDS: ACETAMINOPHEN 1000 MG/100 ML BAG IVPB ONE (11:27)
[2024-02-14 09:36] LABS: BASO % 0.7 % (0-2.0); EOS % 3.7 % (0-4.5); HEMATOCRIT 37.1 % (35.4-49); HEMOGLOBIN 13.2 GM/dL (11.7-16.9); LYMPH % 29.2 % (8-40); MCH 33.5 pg (25.7-33.7); MCHC 35.7 g/dl (32.0-35.9); MEAN CELL VOLUME 93.8 fl (80-96); MEAN PLT VOLUME 8.6 fl (7.5-11.1); MONO % 6.1 % (3.8-10.2); NEUT % 60.3 % (42.8-82.8); PLATELET COUNT 214 10^3/uL (134-434); RBC 3.95 M/mm3 (4.00-5.60); RDW 14.6 % (11.9-15.9); WHITE BLOOD COUNT 9.3 K/mm3 (4.0-10.0)
[2024-02-14 09:56] LABS: POTASSIUM 3.4 mmol/L (3.5-5.1)
[2024-02-14 10:19] LABS: CALCIUM 9.6 mg/dL (8.5-10.1)
[2024-02-14 10:20] LABS: ALBUMIN 4.1 g/dl (3.4-5.0)
[2024-02-14 10:21] LABS: BLOOD UREA NITROGEN 23.1 mg/dL (7-18)
[2024-02-14 10:23] LABS: BILIRUBIN,TOTAL 1.1 mg/dL (0.2-1); CREATININE 1.2 mg/dL (0.55-1.3); TOT PROT 7.7 g/dl (6.4-8.2)
[2024-02-15] MEDS: GABAPENTIN 100 MG CAPSULE PO SCH (13:59)
[2024-02-15] MEDS: methylPREDNISolone 4 MG TABLET PO SCH (17:39)
[2024-02-15] MEDS: INSULIN (LEVEMIR) 100 UNITS/ML UNITS SQ SCH (21:12)
[2024-02-16 09:38] LABS: HEMATOCRIT 37.9 % (35.4-49); HEMOGLOBIN 13.4 GM/dL (11.7-16.9); MCH 33.6 pg (25.7-33.7); MCHC 35.5 g/dl (32.0-35.9); MEAN CELL VOLUME 94.5 fl (80-96); MEAN PLT VOLUME 8.8 fl (7.5-11.1); PLATELET COUNT 206 10^3/uL (134-434); RBC 4.01 M/mm3 (4.00-5.60); RDW 14.3 % (11.9-15.9); WHITE BLOOD COUNT 8.9 K/mm3 (4.0-10.0)
[2024-02-16 09:56] LABS: POTASSIUM 3.9 mmol/L (3.5-5.1)
[2024-02-16 09:57] LABS: ALBUMIN 4.1 g/dl (3.4-5.0); BLOOD UREA NITROGEN 29.9 mg/dL (7-18); CALCIUM 9.5 mg/dL (8.5-10.1)
[2024-02-16 10:00] LABS: CREATININE 1.3 mg/dL (0.55-1.3)
[2024-02-16 10:03] LABS: BILIRUBIN,TOTAL 1.1 mg/dL (0.2-1); TOT PROT 7.6 g/dl (6.4-8.2)
[2024-02-16] MEDS: KETOROLAC TROMETHAMINE 30 MG/1 ML VIAL IVPUSH PRN (17:35)
[2024-02-16] MEDS: INSULIN (LEVEMIR) 100 UNITS/ML UNITS SQ SCH (21:55)
[2024-02-18] MEDS ORDERED: INSULIN ASPART SLIDING SCALE (NOVOLOG) 1 VIAL SQ ONE (06:42)
[2024-02-18] MEDS ORDERED: INSULIN (LEVEMIR) 100 UNITS/ML UNITS SQ ONE (06:43)
[2024-02-18 15:19] VITALS: RESP 18
[2024-02-18 21:58] VITALS: TEMP 987.2
[2024-02-19 06:06] VITALS: BP 116/81; PULSE 77
[2024-02-19] MEDS ORDERED: INSULIN ASPART SLIDING SCALE (NOVOLOG) 1 VIAL SQ ONE (06:48)
[2024-02-19] MEDS ORDERED: INSULIN (LEVEMIR) 100 UNITS/ML UNITS SQ ONE (06:48)
== END 2024-02-19 10:40 | disposition home or self-care (01) | DRG 552 ==
LOC: JER 06:26 → JERBED 12:46 → OBSVTOIN 16:18 → J6S 17:00
PROVIDERS: ADMIT Family Medicine; ATTEND Family Medicine
DX: M48.07 Spinal stenosis, lumbosacral region (principal); I50.22 Chronic systolic (congestive) heart failure; E11.9 Type 2 diabetes mellitus without complications; E78.5 Hyperlipidemia, unspecified; I11.0 Hypertensive heart disease with heart failure; I25.10 Atherosclerotic heart disease of native coronary artery without angina pectoris; N40.0 Benign prostatic hyperplasia without lower urinary tract symptoms; Z79.84 Long term (current) use of oral hypoglycemic drugs; M43.16 Spondylolisthesis, lumbar region
CPT/HCPCS: 36415; 70450-TC; 71046-TC-FY; 72100-TC-FY; 72125-TC; 72131-TC; 72170-TC-FY; 73502-TC-LT-FY; 73552-TC-LT-FY; 80053; 82085; 82550; 82553; 82962; 83036; 83874; 84484; 85025; 85027; 93005; 93010; 97116-GP; 97162-GP; 99285-25; G0378; J0131

== ENCOUNTER 2024-04-28 11:39 | Inpatient (IN) | payer OTHER ==
[2024-04-28] MEDS ORDERED: ACETAMINOPHEN INJECTION 100 ML IVPB ONE (12:43)
[2024-04-28] MEDS: ACETAMINOPHEN 1000 MG/100 ML BAG IVPB ONE (12:50)
[2024-04-28 13:03] LABS: BASO % 0.5 % (0-2.0); EOS % 0.7 % (0-4.5); HEMATOCRIT 40.8 % (35.4-49); HEMOGLOBIN 14.2 GM/dL (11.7-16.9); LYMPH % 10.9 % (8-40); MCH 33.6 pg (25.7-33.7); MCHC 34.8 g/dl (32.0-35.9); MEAN CELL VOLUME 96.7 fl (80-96); MEAN PLT VOLUME 7.6 fl (7.5-11.1); MONO % 5.1 % (3.8-10.2); NEUT % 82.8 % (42.8-82.8); PLATELET COUNT 181 10^3/uL (134-434); RBC 4.22 M/mm3 (4.00-5.60); RDW 14.5 % (11.9-15.9); WHITE BLOOD COUNT 11.8 K/mm3 (4.0-10.0)
[2024-04-28 13:09] LABS: INR 0.99 (0.83-1.09); PROTHROMBIN TIME (PATIENT) 11.2 SEC (9.7-13.0)
[2024-04-28 13:12] LABS: ACTIVATED PTT 32.6 SECONDS (25.2-36.5)
[2024-04-28 13:34] LABS: POTASSIUM 4.1 mmol/L (3.5-5.1)
[2024-04-28 13:39] LABS: ALBUMIN 4.9 g/dl (3.4-5.0); CALCIUM 10.1 mg/dL (8.5-10.1)
[2024-04-28 13:40] LABS: BLOOD UREA NITROGEN 18.8 mg/dL (7-18)
[2024-04-28 13:43] LABS: CREATININE 1.3 mg/dL (0.55-1.3)
[2024-04-28 13:44] LABS: BILIRUBIN,TOTAL 1.2 mg/dL (0.2-1)
[2024-04-28 13:45] LABS: TOT PROT 8.6 g/dl (6.4-8.2)
[2024-04-28 13:48] LABS: N-TERMINAL BNP 467.2 pg/ml (5-125)
[2024-04-28] MEDS ORDERED: KETOROLAC TROMETHAMINE 15 MG/ML VIAL ONE (16:44)
[2024-04-28] MEDS: KETOROLAC TROMETHAMINE 15 MG/ML VIAL IVPUSH ONE (16:58)
[2024-04-28] MEDS ORDERED: methylPREDNISolone NA SUCC 125 MG/2 ML VIAL ONE (18:52)
[2024-04-28] MEDS ORDERED: ENOXAPARIN NA (PORCINE) 80 MG/0.8 ML DISP.SYRIN SQ ONE (18:53)
[2024-04-28] MEDS: methylPREDNISolone NA SUCC 125 MG/2 ML VIAL IVPB ONE (18:55)
[2024-04-28] MEDS: ENOXAPARIN NA (PORCINE) 80 MG/0.8 ML DISP.SYRIN SQ SCH (18:58)
[2024-04-28] MEDS: CARVEDILOL 6.25 MG TABLET (FP) PO SCH (23:28)
[2024-04-28] MEDS: SACUBITRIL/VALSARTAN 24 MG-26 MG TABLET PO SCH (23:28)
[2024-04-28] MEDS: ATORVASTATIN CA 80 MG TABLET (FP) PO SCH (23:28)
[2024-04-28] MEDS: INSULIN ASPART SLIDING SCALE (NOVOLOG) 1 VIAL SQ SCH (23:34)
[2024-04-28] MEDS: ALBUTEROL SO4 2.5/IPRATROPIUM 0.5 INH SOL 3 ML VIAL.NEB. NEB SCH (23:50)
[2024-04-29] MEDS: LIDOCAINE 5% TOPICAL PATCH TP ONE (00:10)
[2024-04-29] MEDS: oxyCODONE HCL 5 MG TABLET PO ONE ×2 (00:10→21:45)
[2024-04-29 01:36] VITALS: BMI 26.6
[2024-04-29 07:48] LABS: BASO % 0.2 % (0-2.0); EOS % 0.1 % (0-4.5); HEMATOCRIT 39.4 % (35.4-49); LYMPH % 8.3 % (8-40); MCHC 35.5 g/dl (32.0-35.9); MEAN CELL VOLUME 95.8 fl (80-96); MEAN PLT VOLUME 8.8 fl (7.5-11.1); MONO % 0.9 % (3.8-10.2); NEUT % 90.5 % (42.8-82.8); PLATELET COUNT 188 10^3/uL (134-434); RBC 4.11 M/mm3 (4.00-5.60); RDW 14.5 % (11.9-15.9); WHITE BLOOD COUNT 7.6 K/mm3 (4.0-10.0)
[2024-04-29 08:13] LABS: POTASSIUM 4.5 mmol/L (3.5-5.1)
[2024-04-29 08:22] LABS: ALBUMIN 4.3 g/dl (3.4-5.0); BLOOD UREA NITROGEN 25.5 mg/dL (7-18)
[2024-04-29 08:23] LABS: CALCIUM 9.3 mg/dL (8.5-10.1); MAGNESIUM 2.4 mg/dL (1.8-2.4)
[2024-04-29 08:25] LABS: CREATININE 1.3 mg/dL (0.55-1.3); PHOSPHOROUS 3.7 mg/dL (2.5-4.9)
[2024-04-29 08:26] LABS: TOT PROT 8.3 g/dl (6.4-8.2)
[2024-04-29] MEDS: ENOXAPARIN NA (PORCINE) 40 MG/0.4 ML DISP.SYRIN SQ SCH (10:45)
[2024-04-29] MEDS: INSULIN (LEVEMIR) 100 UNITS/ML UNITS SQ SCH ×2 (10:46→21:22)
[2024-04-29] MEDS: PANTOPRAZOLE 40 MG TABLET PO SCH (10:47)
[2024-04-29] MEDS: TAMSULOSIN HCL 0.4 MG CAP PO SCH (10:47)
[2024-04-29] MEDS: FUROSEMIDE 40 MG TABLET (FP) PO SCH (10:48)
[2024-04-29] MEDS: CARVEDILOL 6.25 MG TABLET (FP) PO SCH (10:48)
[2024-04-29] MEDS: LIDOCAINE PATCH REMOVAL MC ONE (13:11)
[2024-04-29] MEDS: INSULIN (NOVOLOG) ASPART 100 UNITS/ML 10ML VIAL SQ ONE (13:16)
[2024-04-29] MEDS: LACTATED RINGERS SOLUTION 1,000 ML/1,000 ML INFUS.BAG IV SCH (13:30)
[2024-04-29] MEDS: EMPAGLIFLOZIN (JARDIANCE) 25 MG TABLET PO SCH (19:16)
[2024-04-30 07:31] LABS: POTASSIUM 4.1 mmol/L (3.5-5.1)
[2024-04-30 07:36] LABS: CALCIUM 9.1 mg/dL (8.5-10.1)
[2024-04-30 07:37] LABS: ALBUMIN 4.2 g/dl (3.4-5.0); BLOOD UREA NITROGEN 32.5 mg/dL (7-18)
[2024-04-30 07:40] LABS: CREATININE 1.5 mg/dL (0.55-1.3); TOT PROT 7.8 g/dl (6.4-8.2)
[2024-04-30 08:44] LABS: PH,URINE 5.5 (5.0-8.0); URINE APPEARANCE CLEAR; URINE BILIRUBIN NEGATIVE (NEGATIVE); URINE COLOR YELLOW; URINE GLUCOSE (UA) 3+ (NEGATIVE); URINE KETONE TRACE (NEGATIVE); URINE LEUK ESTERASE NEGATIVE (NEGATIVE); URINE NITRITE NEGATIVE (NEGATIVE); URINE PROTEIN TRACE (NEGATIVE)
[2024-04-30] MEDS: CARVEDILOL 12.5 MG TABLET (FP) PO SCH (10:02)
[2024-04-30] MEDS: traMADol HCL 50 MG TABLET PO PRN (21:09)
[2024-05-01 07:25] VITALS: RESP 18
[2024-05-01 08:48] VITALS: BP 122/77; PULSE 88; TEMP 97.9
== END 2024-05-01 09:48 | disposition home or self-care (01) | DRG 439 ==
LOC: JER 11:39 → JERBED 16:07 → OBSVTOIN 17:45 → JERBED 22:37 → J4W 23:04
PROVIDERS: ADMIT Internal Medicine; ATTEND Internal Medicine
DX: K85.90 Acute pancreatitis without necrosis or infection, unspecified (principal); E87.1 Hypo-osmolality and hyponatremia; I13.0 Hypertensive heart and chronic kidney disease with heart failure and stage 1 through stage 4 chronic kidney disease, or unspecified chronic kidney disease; I50.22 Chronic systolic (congestive) heart failure; R07.89 Other chest pain; E78.00 Pure hypercholesterolemia, unspecified; E78.5 Hyperlipidemia, unspecified; I25.10 Atherosclerotic heart disease of native coronary artery without angina pectoris; J44.9 Chronic obstructive pulmonary disease, unspecified; M51.36 Other intervertebral disc degeneration, lumbar region; R91.1 Solitary pulmonary nodule; N40.0 Benign prostatic hyperplasia without lower urinary tract symptoms; E11.22 Type 2 diabetes mellitus with diabetic chronic kidney disease; N18.9 Chronic kidney disease, unspecified; M54.10 Radiculopathy, site unspecified
CPT/HCPCS: 0241U-QW; 36415; 71045-TC-FY; 71275-TC; 76705-TC; 80053; 81003; 82962; 83036; 83690; 83735; 83880; 84100; 84439; 84443; 84478; 84484; 85025; 85610; 85730; 93005; 93010; 94640; 99285-25; G0378; J0131; Q9967

== ENCOUNTER 2024-07-27 01:30 | Inpatient (IN) | payer OTHER ==
[2024-07-27 01:38] VITALS: BMI 28.8
[2024-07-27] MEDS ORDERED: ACETAMINOPHEN INJECTION 100 ML ONE ×3 (02:42→13:51)
[2024-07-27] MEDS ORDERED: ONDANSETRON 4 MG/2 ML VIAL ONE (02:43)
[2024-07-27] MEDS ORDERED: MAG HYDROX/AL HYDROX/SIMETH 30 ML UNIT-DOSE CUP ONE (02:43)
[2024-07-27 02:47] LABS: BASO % 0.5 % (0-2.0); EOS % 3.4 % (0-4.5); HEMATOCRIT 36.5 % (35.4-49); HEMOGLOBIN 12.7 GM/dL (11.7-16.9); LYMPH % 21.5 % (8-40); MCH 33.5 pg (25.7-33.7); MCHC 34.8 g/dl (32.0-35.9); MEAN CELL VOLUME 96.1 fl (80-96); MEAN PLT VOLUME 8.3 fl (7.5-11.1); MONO % 7.3 % (3.8-10.2); NEUT % 67.3 % (42.8-82.8); PLATELET COUNT 164 10^3/uL (134-434); WHITE BLOOD COUNT 6.4 K/mm3 (4.0-10.0)
[2024-07-27] MEDS: ACETAMINOPHEN 1000 MG/100 ML BAG IVPB ONE (02:48)
[2024-07-27] MEDS: ONDANSETRON 4 MG/2 ML VIAL IVPUSH ONE (02:48)
[2024-07-27] MEDS: MAG HYDROX/AL HYDROX/SIMETH 30 ML UNIT-DOSE CUP PO ONE (02:48)
[2024-07-27 02:56] LABS: INR 0.96 (0.83-1.09); PROTHROMBIN TIME (PATIENT) 10.9 SEC (9.7-13.0)
[2024-07-27 02:59] LABS: ACTIVATED PTT 35.1 SECONDS (25.2-36.5)
[2024-07-27 03:27] LABS: POTASSIUM 4.4 mmol/L (3.5-5.1)
[2024-07-27 03:29] LABS: CALCIUM 9.1 mg/dL (8.5-10.1)
[2024-07-27 03:30] LABS: ALBUMIN 4.4 g/dl (3.4-5.0); BLOOD UREA NITROGEN 15.3 mg/dL (7-18); MAGNESIUM 2.1 mg/dL (1.8-2.4)
[2024-07-27 03:32] LABS: CREATININE 1.2 mg/dL (0.55-1.3)
[2024-07-27 03:34] LABS: BILIRUBIN,TOTAL 1.2 mg/dL (0.2-1)
[2024-07-27] MEDS ORDERED: morphine SULFATE 4 MG/ML VIAL ONE ×2 (04:39→08:23)
[2024-07-27] MEDS: morphine SULFATE 4 MG/ML VIAL IVPUSH ONE (04:50)
[2024-07-27] MEDS: SODIUM CHLORIDE 0.9% 500 ML INFUS.BAG IV ONE (04:51)
[2024-07-27 06:25] LABS: EPI CELLS 2 /uL (0-25.1); HYALINE CASTS 0 /uL (0-3.1); PH,URINE 5.5 (5.0-8.0); URINE APPEARANCE Clear; URINE BACTERIA 8 /uL (0-1359); URINE BILIRUBIN Negative (NEGATIVE); URINE COLOR Yellow; URINE GLUCOSE (UA) >=1000 (NEGATIVE); URINE KETONE 15 mg/dl (NEGATIVE); URINE LEUK ESTERASE Negative (NEGATIVE); URINE NITRITE Negative (NEGATIVE); URINE PROTEIN 100 (NEGATIVE); URINE RBC 11 /uL (0-23.9); URINE UROBILINOGEN 0.2 mg/dL (0.2-1.0); URINE WBC 3 /uL (0-25.8)
[2024-07-27] MEDS: LACTATED RINGERS SOLUTION 1,000 ML/1,000 ML INFUS.BAG IV SCH (06:44)
[2024-07-27] MEDS: ACETAMINOPHEN 1000 MG/100 ML BAG IVPB PRN (07:17)
[2024-07-27] MEDS ORDERED: SACUBITRIL/VALSARTAN 24 MG-26 MG TABLET ONE (07:45)
[2024-07-27] MEDS ORDERED: CARVEDILOL 25 MG TABLET (FP) ONE (07:46)
[2024-07-27] MEDS: morphine CARPU-JECT 4 MG/1 ML DISP.SYRIN IVPUSH ONE (08:28)
[2024-07-27] MEDS ORDERED: TAMSULOSIN HCL 0.4 MG CAP ONE (08:29)
[2024-07-27] MEDS: TAMSULOSIN HCL 0.4 MG CAP PO SCH (08:32)
[2024-07-27] MEDS: CARVEDILOL 12.5 MG TABLET (FP) PO SCH (09:29)
[2024-07-27] MEDS: SACUBITRIL/VALSARTAN 24 MG-26 MG TABLET PO SCH (09:29)
[2024-07-27] MEDS ORDERED: PANTOPRAZOLE SODIUM 0 MG/0 ML BAG IVPB ONE (09:30)
[2024-07-27] MEDS ORDERED: PANTOPRAZOLE SODIUM 40 MG VIAL ONE (09:34)
[2024-07-27] MEDS: PANTOPRAZOLE SODIUM 40 MG VIAL IVPUSH SCH (09:37)
[2024-07-27] MEDS ORDERED: INSULIN (NOVOLOG MIX 70/30) 100 UNITS/ML MDV SQ ONE (12:03)
[2024-07-27] MEDS ORDERED: MORPHINE SULFATE 2 MG/ML SYRINGE IM PRN (14:11)
[2024-07-27] MEDS ORDERED: amLODIPine BESYLATE 10 MG TABLET (FP) ONE (15:49)
[2024-07-27] MEDS: amLODIPine BESYLATE 10 MG TABLET (FP) PO SCH (15:57)
[2024-07-27 16:14] LABS: CHOLESTEROL 267 mg/dL (50-200)
[2024-07-27 16:16] LABS: LDL CHOLESTEROL (ONLY SJRH) 129 mg/dL (5-100)
[2024-07-27 16:17] LABS: HDL CHOLESTEROL 129 mg/dL (40-60)
[2024-07-27] MEDS: ATORVASTATIN CA 80 MG TABLET (FP) PO SCH (21:18)
[2024-07-28] MEDS: TRIMETHOBENZAMIDE HCL 200MG/2ML INJ IM PRN (03:05)
[2024-07-28] MEDS: INSULIN ASPART SLIDING SCALE (NOVOLOG) 1 VIAL SQ SCH (06:18)
[2024-07-28 08:38] LABS: BASO % 0.7 % (0-2.0); EOS % 2.4 % (0-4.5); HEMOGLOBIN 12.3 GM/dL (11.7-16.9); LYMPH % 19.8 % (8-40); MCH 33.2 pg (25.7-33.7); MCHC 34.3 g/dl (32.0-35.9); MEAN CELL VOLUME 96.8 fl (80-96); MEAN PLT VOLUME 8.6 fl (7.5-11.1); MONO % 8.1 % (3.8-10.2); PLATELET COUNT 151 10^3/uL (134-434); RBC 3.72 M/mm3 (4.00-5.60); RDW 14.2 % (11.9-15.9); WHITE BLOOD COUNT 7.1 K/mm3 (4.0-10.0)
[2024-07-28 08:59] LABS: POTASSIUM 3.6 mmol/L (3.5-5.1)
[2024-07-28 09:06] LABS: ALBUMIN 3.8 g/dl (3.4-5.0); CALCIUM 8.9 mg/dL (8.5-10.1)
[2024-07-28 09:07] LABS: BLOOD UREA NITROGEN 14.5 mg/dL (7-18)
[2024-07-28 09:10] LABS: CREATININE 1.2 mg/dL (0.55-1.3)
[2024-07-28 09:11] LABS: BILIRUBIN,TOTAL 1.4 mg/dL (0.2-1); TOT PROT 7.2 g/dl (6.4-8.2)
[2024-07-28] MEDS: KCL 10 MEQ IVPB 10 MEQ/100 ML INFUS.BAG IVPB SCH (09:52)
[2024-07-28] MEDS: ONDANSETRON 4 MG/2 ML VIAL IVPUSH PRN (10:39)
[2024-07-28] MEDS: POTASSIUM CHLORIDE ORAL LIQUID 20 MEQ/15 ML PO ONE (12:53)
[2024-07-28 14:42] VITALS: RESP 18
[2024-07-28] MEDS: DOCUSATE SODIUM 100 MG CAPSULE (FP) PO PRN (17:32)
[2024-07-28] MEDS ORDERED: DOCUSATE SODIUM 100 MG CAPSULE (FP) PO PRN (22:00)
[2024-07-29 08:40] VITALS: TEMP 98.1
[2024-07-29 09:47] LABS: BASO % 0.8 % (0-2.0); EOS % 2.7 % (0-4.5); HEMATOCRIT 36.7 % (35.4-49); HEMOGLOBIN 12.5 GM/dL (11.7-16.9); MCH 33.3 pg (25.7-33.7); MCHC 33.9 g/dl (32.0-35.9); MEAN PLT VOLUME 8.4 fl (7.5-11.1); MONO % 9.5 % (3.8-10.2); PLATELET COUNT 143 10^3/uL (134-434); RBC 3.74 M/mm3 (4.00-5.60); WHITE BLOOD COUNT 8.2 K/mm3 (4.0-10.0)
[2024-07-29 09:58] LABS: POTASSIUM 3.5 mmol/L (3.5-5.1)
[2024-07-29 10:03] LABS: ALBUMIN 3.6 g/dl (3.4-5.0); BLOOD UREA NITROGEN 8.9 mg/dL (7-18); CALCIUM 8.7 mg/dL (8.5-10.1)
[2024-07-29 10:06] LABS: CREATININE 1.2 mg/dL (0.55-1.3)
[2024-07-29 10:08] LABS: BILIRUBIN,TOTAL 1.3 mg/dL (0.2-1)
[2024-07-29 10:39] VITALS: BP 121/82; PULSE 82
[2024-07-29] MEDS: PANTOPRAZOLE 40 MG TABLET PO SCH (10:44)
[2024-07-29] MEDS: INSULIN (LEVEMIR) 100 UNITS/ML UNITS SQ SCH (10:48)
== END 2024-07-29 13:43 | disposition left against medical advice (07) | DRG 439 ==
LOC: JER 01:30 → JERBED 06:05 → J5S 18:17 → OBSVTOIN 07-28 14:53
PROVIDERS: ADMIT Family Medicine; ATTEND Family Medicine
DX: K85.20 Alcohol induced acute pancreatitis without necrosis or infection (principal); I50.22 Chronic systolic (congestive) heart failure; I25.10 Atherosclerotic heart disease of native coronary artery without angina pectoris; E11.9 Type 2 diabetes mellitus without complications; I11.0 Hypertensive heart disease with heart failure; R07.89 Other chest pain; E78.5 Hyperlipidemia, unspecified; J44.9 Chronic obstructive pulmonary disease, unspecified
CPT/HCPCS: 36415; 71045-TC-FY; 74177-TC; 76700-TC; 80053; 80061; 81003; 82962; 83036; 83690; 83735; 84484; 85025; 85610; 85730; 86850; 86900; 86901; 87086; 93005; 93010; 99285-25; G0378; J0131; Q9967

== ENCOUNTER 2025-07-22 04:00 | Inpatient (IN) | payer OTHER ==
[2025-07-22] MEDS ORDERED: MAG HYDROX/AL HYDROX/SIMETH 30 ML UNIT-DOSE CUP ONE ×2 (04:27→09:00)
[2025-07-22] MEDS ORDERED: FAMOTIDINE 20 MG/50 ML IVPB 20 MG/50 ML MG IVPB ONE (04:27)
[2025-07-22] MEDS: MAG HYDROX/AL HYDROX/SIMETH 30 ML UNIT-DOSE CUP PO ONE ×2 (04:37→09:10)
[2025-07-22] MEDS: FAMOTIDINE 20 MG/50 ML IVPB 20 MG/50 ML MG IVPB ONE (04:37)
[2025-07-22] MEDS ORDERED: ACETAMINOPHEN INJECTION 100 ML ONE (04:49)
[2025-07-22] MEDS: ACETAMINOPHEN 1000 MG/100 ML BAG IVPB ONE (04:51)
[2025-07-22 04:58] LABS: ABSOLUTE IMMATURE GRANULOCYTES 0.01 x10^3/uL (0.0-0.031); BASOPHILS # 0.09 x10^3/uL (0.01-0.08); EOSINOPHIL % 3.9 % (0.8-7.0); EOSINOPHILS # 0.32 x10^3/uL (0.04-0.54); MCHC 34.6 g/dl (32.3-36.5); MEAN CELL VOLUME 93.6 fl (79.0-92.2); MEAN PLT VOLUME 10.1 fl (9.4-12.4); MONOCYTE # 0.45 x10^3/uL (0.30-0.82); MONOCYTE % 5.4 % (5.3-12.2); RDW 12.8 % (12.2-16.4)
[2025-07-22 05:10] LABS: INR 0.9 (0.83-1.09); PROTHROMBIN TIME (PATIENT) 9.8 SEC (9.7-13.0)
[2025-07-22 05:13] LABS: ACTIVATED PTT 36.9 SECONDS (25.2-36.5)
[2025-07-22 05:19] LABS: GLUCOSE,RANDOM 224.0 mg/dL (74-106)
[2025-07-22 05:20] LABS: TOT PROT 7.8 g/dl (6.4-8.2)
[2025-07-22 05:21] LABS: CO2 20.0 mmol/L (21-32)
[2025-07-22 05:22] LABS: ALK PHOS 87.0 U/L (40-150)
[2025-07-22 05:25] LABS: CREATININE 1.13 mg/dL (0.55-1.3); SGOT/AST 29.0 U/L (5-34); SGPT/ALT 35.0 U/L (0-55)
[2025-07-22 05:46] LABS: HCV DIAGNOSTIC IN-HOUSE W/RFLX NON-REACTIVE (NONREACTIVE); HIV INTERPRETATION NEGATIVE (NEGATIVE)
[2025-07-22] MEDS ORDERED: IBUPROFEN 600 MG TABLET (FP) PO ONE (06:16)
[2025-07-22] MEDS: IBUPROFEN 600 MG TABLET (FP) PO ONE (06:18)
[2025-07-22] MEDS ORDERED: ASPIRIN 325 MG TABLET ONE (06:54)
[2025-07-22] MEDS: ASPIRIN 325 MG TABLET PO ONE (06:57)
[2025-07-22 07:02] LABS: URINE APPEARANCE Clear; URINE BILIRUBIN Negative (NEGATIVE); URINE COLOR Yellow; URINE GLUCOSE (UA) 2+ (NEGATIVE); URINE KETONE Negative (NEGATIVE); URINE LEUK ESTERASE Negative (NEGATIVE); URINE NITRITE Negative (NEGATIVE); URINE PROTEIN Negative (NEGATIVE); URINE UROBILINOGEN 0.2 mg/dL (0.2-1.0)
[2025-07-22] MEDS ORDERED: FAMOTIDINE 20 MG TABLET ONE (08:59)
[2025-07-22] MEDS ORDERED: SUCRALFATE 1 GM TABLET (FP) ONE (08:59)
[2025-07-22] MEDS ORDERED: HEPARIN NA (PORCINE) 5,000 UNITS/ML 1ML VIAL IVPUSH PRN ×2 (08:59)
[2025-07-22] MEDS ORDERED: CLOPIDOGREL BISULFATE 300 MG TABLET ONE (09:00)
[2025-07-22] MEDS: SUCRALFATE 1 GM/10 ML UNIT DOSE CUPS PO ONE (09:10)
[2025-07-22] MEDS: CLOPIDOGREL BISULFATE 300 MG TABLET PO ONE (09:10)
[2025-07-22] MEDS: HEPARIN NA (PORCINE) 5,000 UNITS/ML 1ML VIAL SQ ONE (09:10)
[2025-07-22] MEDS: FAMOTIDINE 20 MG TABLET PO ONE (09:10)
[2025-07-22] MEDS: HEPARIN INFUSION - 25,000 UNITS/500 ML INFUS.BAG IVPB SCH (09:16)
[2025-07-22] MEDS ORDERED: HEPARIN INFUSION - 25,000 UNITS/500 ML INFUS.BAG ONE (09:18)
[2025-07-22] MEDS: SACUBITRIL/VALSARTAN 24 MG-26 MG TABLET PO SCH (16:37)
[2025-07-22] MEDS: INSULIN ASPART SLIDING SCALE (NOVOLOG) 1 VIAL SQ SCH (17:42)
[2025-07-22 18:10] VITALS: BMI 28.9
[2025-07-22] MEDS: predniSONE 20 MG TABLET (UD) PO SCH (19:40)
[2025-07-22] MEDS: amLODIPine BESYLATE 5 MG TABLET (FP) PO ONE (20:24)
[2025-07-22] MEDS: ATORVASTATIN CA 80 MG TABLET (FP) PO SCH (21:37)
[2025-07-23 07:22] LABS: ABSOLUTE IMMATURE GRANULOCYTES 0.05 x10^3/uL (0.0-0.031); BASOPHILS # 0.06 x10^3/uL (0.01-0.08); EOSINOPHIL % 0.2 % (0.8-7.0); EOSINOPHILS # 0.02 x10^3/uL (0.04-0.54); MCHC 34.9 g/dl (32.3-36.5); MEAN CELL VOLUME 91.4 fl (79.0-92.2); MEAN PLT VOLUME 10.3 fl (9.4-12.4); MONOCYTE # 0.09 x10^3/uL (0.30-0.82); MONOCYTE % 0.8 % (5.3-12.2); RDW 12.6 % (12.2-16.4)
[2025-07-23 07:54] LABS: GLUCOSE,RANDOM 267.0 mg/dL (74-106); TOT PROT 7.8 g/dl (6.4-8.2)
[2025-07-23 07:55] LABS: CO2 15.0 mmol/L (21-32)
[2025-07-23 07:57] LABS: ALK PHOS 50.0 U/L (40-150)
[2025-07-23 07:59] LABS: SGOT/AST 22.0 U/L (5-34); SGPT/ALT 24.0 U/L (0-55)
[2025-07-23 08:00] LABS: CREATININE 0.93 mg/dL (0.55-1.3); LDL CHOLESTEROL (ONLY SJRH) 193.0 mg/dL (5-100)
[2025-07-23] MEDS: EMPAGLIFLOZIN (JARDIANCE) 25 MG TABLET PO SCH (10:03)
[2025-07-23] MEDS: ASPIRIN 81 MG CHEWABLE TABLETS PO SCH (10:03)
[2025-07-23 12:07] VITALS: BP 130/95; PULSE 104; RESP 18; TEMP 97.7
== END 2025-07-23 13:01 | disposition short-term general hospital (02) | DRG 281 ==
LOC: JER 04:00 → JERBED 09:29 → J4W 15:49
PROVIDERS: ADMIT Internal Medicine; ATTEND Internal Medicine
DX: I21.4 Non-ST elevation (NSTEMI) myocardial infarction (principal); I50.22 Chronic systolic (congestive) heart failure; I11.0 Hypertensive heart disease with heart failure; J44.9 Chronic obstructive pulmonary disease, unspecified; E11.9 Type 2 diabetes mellitus without complications; I25.10 Atherosclerotic heart disease of native coronary artery without angina pectoris; E78.5 Hyperlipidemia, unspecified
CPT/HCPCS: 36415; 71046-TC-FY; 80053; 80061; 81003; 82962; 83036; 83690; 83735; 84100; 84443; 84484; 85025; 85379; 85610; 85730; 86803; 86850; 86900; 86901; 87086; 87389; 87637-QW; 93005; 93010; 93306-TC; 99291; J1644